=== PATIENT | male | born 1960 | race American Indian/Alaskan Native ===

== ENCOUNTER 2018-04-14 14:58 | Inpatient (IN) | payer BC ==
--- NOTE | 2018-04-14 15:16 | C.PDOC ---
Chief Complaint (Nursing): Abnormal Labs Past Medical History Vital Signs: Last Vital Signs Temp 97.6 F 04/14/18 15:03 Pulse 120 H 04/14/18 15:03 Resp 18 04/14/18 15:03 BP 173/137 H 04/14/18 15:03 Pulse Ox 98 04/14/18 15:03 - Social History Hx Alcohol Use: No Hx Substance Use: Yes ED Course And Treatment O2 Sat by Pulse Oximetry: 98 Disposition - Disposition
[2018-04-14] MEDS ORDERED: Sodium Chloride 0.9% 1,000 ML IV ONE ×2 (15:20→16:55)
[2018-04-14] MEDS ORDERED: Aluminum Hydroxide/Magnesium Hydroxide Susp (30 mL) PO STA (15:24)
--- NOTE | 2018-04-14 15:35 | C.PDOC ---
History Of Present Illness 58 y/o male with PMHx of diabetes and hypertension sent to the ED by Dr. Curry for abnormal labs. Patient has been vomiting for a few days and feeling dehydrated as per Dr. Curry. He then had blood work done, revealing elevated blood sugar and slightly elevated white count, with creatinine of [address] Curry also felt the patient may have gastritis. Otherwise denies any diarrhea, fever, chills, or other complaints. Time Seen by Provider: 04/14/18 15:14 Chief Complaint (Nursing): Abnormal Labs History Per: Patient History/Exam Limitations: no limitations Onset/Duration Of Symptoms: Days Current Symptoms Are (Timing): Still Present Past Medical History Reviewed: Historical Data, Nursing Documentation, Vital Signs Vital Signs: Last Vital Signs Temp 97.6 F 04/14/18 15:03 Pulse 89 04/14/18 17:40 Resp 18 04/14/18 17:40 BP 198/108 H 04/14/18 17:40 Pulse Ox 98 04/14/18 17:52 - Medical History PMH: Diabetes, HTN Family History: States: No Known Family Hx - Social History Hx Alcohol Use: No Hx Substance Use: Yes Review Of Systems Except As Marked, All Systems Reviewed And Found Negative. Constitutional: Positive for: Other (feeling dehydrated). Negative for: Fever, Chills Cardiovascular: Negative for: Chest Pain Respiratory: Negative for: Shortness of Breath Gastrointestinal: Positive for: Nausea, Vomiting. Negative for: Diarrhea Physical Exam - Physical Exam Appears: Non-toxic, No Acute Distress Skin: Normal Color, Warm, Dry Head: Atraumatic, Normacephalic Eye(s): bilateral: Normal Inspection, PERRL, EOMI Nose: Normal Oral Mucosa: Moist Neck: Normal ROM, Supple Cardiovascular: Rhythm Regular, No Murmur Respiratory: Normal Breath Sounds, No Rales, No Rhonchi, No Wheezing Gastrointestinal/Abdominal: Soft, Tenderness (epigastric), No Guarding, No Rebound Back: Normal Inspection, No CVA Tenderness, No Vertebral Tenderness Extremity: Bilateral: Atraumatic, Normal Color And Temperature, Normal ROM Pulses: Left Dorsalis Pedis: Normal, Right Dorsalis Pedis: Normal Neurological/Psych: Oriented x3, Normal Speech, Other (No focal deficits) Gait: Steady ED Course And Treatment - Laboratory Results Result Diagrams: 04/14/18 16:35 04/14/18 16:35 Lab Interpretation: Abnormal ECG: Interpreted By Me ECG Rhythm: Sinus Rhythm, Nonspecific Changes ECG Interpretation: No Acute Changes Rate From EC O2 Sat by Pulse Oximetry: 98 (RA) Pulse Ox Interpretation: Normal - Radiology CXR: Interpreted by Me CXR Interpretation: Yes: No Acute Disease Progress Note: Treated with NSS x 1 liters, protonix and maalox. Treated with clonidine 0.1 mg PO for elevated B/P Reassessment Condition: Improved - Physician Consult Information Time Consulting Physician Contacted: 17:07 Physician Contacted: Jerrod Curry Outcome Of Conversation: Discussed case with Dr. Curry, patient accepted to his service for admission Medical Decision Making Medical Decision Making: Initial Plan: --EKG --Lipase --CMP --CBC --Prothrombin time --Accucheck --Urinalysis --Pepcid 20 mg IVP --Zofran 4 mg IVP --Maalox 30 ml PO --IV fluids Labs reviewed, revealing elevated BUN and creatitine. Glucose 219. Lipase elevated, 560. Paged Dr. Curry. Patient will be admitted for dehydration and pancreatitis. Disposition Discussed With : Jerrod Curry Doctor Will See Patient In The: Hospital Counseled Patient/Family Regarding: Studies Performed, Diagnosis - Disposition Disposition: HOSPITALIZED Disposition Time: 17:09 Condition: STABLE - POA Present On Arrival: None - Clinical Impression Clinical Impression: Dehydration, Pancreatitis - PA / MANAGER ENVIRONMENTAL AFFAIRS / Resident Statement MD/DO has reviewed & agrees with the documentation as recorded. - Scribe Statement The provider has reviewed the documentation as recorded by the Scribe (Hermila Jones) All medical record entries made by the Scribe were at my direction and personally dictated by me. I have reviewed the chart and agree that the record accurately reflects my personal performance of the history, physical exam, medical decision making, and the department course for this patient. I have also personally directed, reviewed, and agree with the discharge instructions and disposition. Decision To Admit - Pt Status Changed To: Hospital Disposition Of: Inpatient - Admit Certification Admit to Inpatient:: After my assessment, the patient will require hospitalization for at least two midnights. This is because of the severity of symptoms shown, intensity of services needed, and/or the medical risk in this patient being treated as an outpatient. - InPatient: Physician Admission Certification: I certify that this patient requires 2 or more midnights of care for the following reason:: Dehydration. Pancreatitis - . Bed Request Type: Regular Admitting Physician: Jerrod Curry Patient Diagnosis: Dehydration, Pancreatitis
[2018-04-14] MEDS ORDERED: Aluminum Hydroxide/Magnesium Hydroxide Susp (30 mL) ONE (16:27)
[2018-04-14] MEDS ORDERED: Sodium Chloride 0.9% 1,000 ML ONE (16:27)
[2018-04-14 16:40] LABS: BASO % 0.3 % (0.0-2.0); EOS % 0.1 % (0.0-4.0); HEMOGLOBIN 17.8 g/dL (12.0-18.0); LYMPH # 2.8 K/uL (1.0-4.3); LYMPH % 21.9 % (20.0-40.0); MEAN CELL VOLUME 83.5 fL (80.0-94.0); MEAN CORPUSCULAR HEMOGLOBIN 27.6 pg (27.0-31.0); MEAN PLATELET VOLUME 9.7 fL (7.2-11.7); MONO % 7.4 % (0.0-10.0); NEUT # 9.1 K/uL (1.8-7.0); NEUT % 70.3 % (50.0-75.0); NRBC % 0.9 % (0.0-2.0); RBC 6.47 Mil/uL (4.40-5.90); RED CELL DISTRIBUTION WIDTH 13.3 % (11.5-14.5)
[2018-04-14 16:47] LABS: INR 1.2; PROTHROMBIN TIME 13.5 SECONDS (9.7-12.2)
[2018-04-14 17:02] LABS: ALBUMIN 4.1 g/dL (3.5-5.0); CALCIUM 9.4 mg/dl (8.6-10.4)
[2018-04-14 18:17] LABS: CK-MB 1.75 ng/mL (0.0-3.38); TROPONIN I 0.03 ng/mL (0.00-0.120)
[2018-04-14] MEDS: Sodium Chloride 0.45% 1,000 ML IV SCH (21:08)
[2018-04-14 21:37] LABS: URINE BACTERIA RARE (<OCC); URINE BILIRUBIN NEGATIVE (NEGATIVE); URINE BLOOD NEGATIVE (NEGATIVE); URINE CLARITY Clear (Clear); URINE COLOR Yellow (YELLOW); URINE GLUCOSE (UA) NORMAL (Normal); URINE LEUKOCYTE ESTERASE NEG Leu/uL (Negative); URINE PROTEIN 2+ mg/dL (NEGATIVE); URINE UROBILINOGEN NORMAL mg/dL (0.2-1.0)
[2018-04-14] MEDS: (Novolin R) Insulin Human Regular 100 units/ml vial SC SCH (22:24)
[2018-04-15 07:22] LABS: BASO % 0.1 % (0.0-2.0); HEMOGLOBIN 16.6 g/dL (12.0-18.0); LYMPH # 3.3 K/uL (1.0-4.3); LYMPH % 26.1 % (20.0-40.0); MEAN CELL VOLUME 83.7 fL (80.0-94.0); MEAN CORPUSCULAR HEMOGLOBIN 28.2 pg (27.0-31.0); MEAN CORPUSCULAR HGB CONC 33.7 g/dL (33.0-37.0); MEAN PLATELET VOLUME 9.7 fL (7.2-11.7); MONO # 0.9 K/uL (0.0-0.8); MONO % 6.8 % (0.0-10.0); NEUT # 8.6 K/uL (1.8-7.0); NRBC % 0.1 % (0.0-2.0); RBC 5.89 Mil/uL (4.40-5.90); RED CELL DISTRIBUTION WIDTH 13.2 % (11.5-14.5); WHITE BLOOD COUNT 12.8 K/uL (4.8-10.8)
[2018-04-15 07:50] LABS: ALB/GLOB RATIO 1.1 (1.0-2.1); ALBUMIN 3.7 g/dL (3.5-5.0); CALCIUM 8.9 mg/dl (8.6-10.4)
--- NOTE | 2018-04-15 07:54 | RAD ---
HISTORY: abdominal pain COMPARISON: No prior. TECHNIQUE: Chest PA and lateral FINDINGS: LUNGS: No active pulmonary disease. PLEURA: No significant pleural effusion identified. No pneumothorax apparent. CARDIOVASCULAR: Normal. OSSEOUS STRUCTURES: No significant abnormalities. VISUALIZED UPPER ABDOMEN: Normal. OTHER FINDINGS: None. IMPRESSION: No acute cardiopulmonary disease appreciated.
[2018-04-15] MEDS: (Novolin R) Insulin Human Regular 100 units/ml vial SC SCH ×4 (08:25→21:57)
[2018-04-15] MEDS: Sodium Chloride 0.45% 1,000 ML IV SCH (08:31)
[2018-04-15] MEDS ORDERED: Glucagon Recombinant 1 mg Inj IM PRN (09:32)
--- NOTE | 2018-04-15 09:53 | CP.PCM.PN ---
Subjective - Date & Time of Evaluation Date of Evaluation: 04/15/18 Time of Evaluation: 09:45 - Subjective Subjective: Progress note. Attending: Dr. Curry Pt seen and examined at bedside. No acute distress. No events overnight. Pt does admit to heroin abuse, psych consult placed. No fevers, chills, no more vomiting, no diarrhea. Pt is legally blind. PMH: Heroin abuse, DM, HTN, legally blind PSH: Allergies: NKDA FH: Denies Social hx: Denies smoking. Denies current drinking. Reports current heroin use. Intransal. 3-4 bags per day. Last use 2 days ago. Objective - Vital Signs/Intake and Output Vital Signs (last 24 hours): Temp Pulse Resp BP Pulse Ox 97.9 F 96 H 20 157/93 H 97 04/15/18 08:00 04/15/18 08:00 04/15/18 08:00 04/15/18 08:00 04/15/18 08:00 Intake and Output: 04/15/18 04/15/18 06:59 18:59 Intake Total 800 Output Total 500 Balance 300 - Medications Medications: Current Medications Amlodipine Besylate (Norvasc) 10 mg PO DAILY [facility] Dextrose (Dextrose 50% Inj) 0 ml IV STAT PRN; Protocol PRN Reason: Hypoglycemia Protocol Dextrose (Glutose 15) 0 gm PO ONCE PRN; Protocol PRN Reason: Hypoglycemia Protocol Enoxaparin Sodium (Lovenox) 40 mg SC DAILY [facility] Glucagon (Glucagen Diagnostic Kit) 0 mg IM STAT PRN; Protocol PRN Reason: Hypoglycemia Protocol Hydromorphone HCl (Dilaudid) 1 mg PO Q4H PRN PRN Reason: Pain, moderate (4-7) Sodium Chloride (Sodium Chloride 0.45%) 1,000 mls @ 100 mls/hr IV .Q10H [facility] Last Admin: 04/15/18 08:31 Dose: 100 mls/hr Dextrose (Dextrose 5% In Water 1000 Ml) 1,000 mls @ 0 mls/hr IV .Q0M PRN; Protocol; Per Protocol PRN Reason: Hypoglycemia Protocol Insulin Human Regular (Novolin R) 0 unit SC ACHS [facility] PRN Reason: Protocol Last Admin: 04/15/18 08:25 Dose: Not Given Ondansetron HCl (Zofran Inj) 4 mg IVP Q6 PRN PRN Reason: Nausea/Vomiting Pantoprazole Sodium (Protonix Inj) 40 mg IVP BID [facility] Pneumococcal Polyvalent Vaccine (Pneumovax 23 Vaccine) 0.5 ml IM .ONCE ONE Stop: 04/16/18 10:01 - Labs Labs: 04/15/18 07:13 04/15/18 07:23 PT 13.5 SECONDS (9.7-12.2) H 04/14/18 16:35 INR 1.2 04/14/18 16:35 - Constitutional Appears: Non-toxic, No Acute Distress, Unkempt - Head Exam Head Exam: ATRAUMATIC, NORMAL INSPECTION, NORMOCEPHALIC - Eye Exam Eye Exam: EOMI - ENT Exam ENT Exam: Mucous Membranes Moist - Neck Exam Neck Exam: Full ROM, Normal Inspection - Respiratory Exam Respiratory Exam: NORMAL BREATHING PATTERN. absent: Respiratory Distress - Cardiovascular Exam Cardiovascular Exam: REGULAR RHYTHM, +S1, +S2 - GI/Abdominal Exam GI & Abdominal Exam: Soft, Normal Bowel Sounds. absent: Tenderness - Extremities Exam Extremities Exam: Full ROM, Normal Inspection - Back Exam Back Exam: NORMAL INSPECTION - Neurological Exam Neurological Exam: Alert, Awake, Oriented x3 - Psychiatric Exam Psychiatric exam: Flat Affect - Skin Skin Exam: Dry, Intact, Normal Color, Warm Assessment and Plan - Assessment and Plan (Free Text) Assessment: This is a 58 yo male with 1. Pancreatitis -NPO -GI consult. Dr. Real. recs appreciated. -dilaudid 1 mg po q 4 hrs prn -zofran prn -1/2 NS 100 cc/hr -lipase 560 -abdominal ultrasound pending 2. Vomiting -zofran prn nausea -r/o coffee ground emesis? -protonix IV bid -GI consult. recs appreciated. Dr. Real 3. Increased BUN/CR -nephrology consult. Dr. Gamino. recs appreciated. -unclear etiology at this time 4. Hx of HTN -continue norvasc 10 mg po daily 5. hx of DM -ISS -hypoglycemia protocol -check HGB a 1C -check lipid panel 6. GI/DVT ppx -protonix iv bid -scds discussed with Dr. Curry
[2018-04-15] MEDS ORDERED: Dextrose 50% SYRINGE Inj (50 ml) IV PRN (10:00)
--- NOTE | 2018-04-15 10:22 | US ---
Abdominal ultrasound History: Abdominal pain. Pancreatitis. Comparison: None available. Technique: Real-time sonography was performed through the abdomen. Findings: Limited study secondary to gas distention of bowel. Liver: 11.9 centimeters in length. Normal echogenicity. Gallbladder: No calculi or sludge. Normal wall thickening of 2.5 millimeters. Negative sonographic Garcia's sign. Common bile duct measures 1.1 centimeter, dilated. Pancreas not well visualized. Spleen measures 7.3 centimeters in length, within normal limits. Bold Visualized aorta and IVC are preserved. Right kidney: 8.5 x 5.4 x 5.2 centimeters. Increased echogenicity of the renal parenchymal cortex suggestive for medical renal disease. No calculi or hydronephrosis. Left kidney: 8.8 x 5.2 x 5.5 centimeters. Increased echogenicity of the renal parenchymal cortex suggestive for medical renal disease. No calculi or hydronephrosis. Impression: Technically limited study. Pancreas not well visualized. Correlation with CT scan would be helpful to exclude pancreatitis. Dilated common bile duct measuring up to 1.1 centimeters. Correlation with MRCP may be helpful for further evaluation if clinically indicated. Increased echogenicity of the bilateral renal parenchymal cortices suggestive for medical renal disease. Clinical correlation.
[2018-04-15] MEDS: Dextrose 5%/0.45% NS 1,000 ML IV SCH ×2 (10:50→21:10)
[2018-04-15] MEDS: Enoxaparin 40 mg Syringe SC SCH (11:01)
[2018-04-15] MEDS ORDERED: Lactated Ringer's 1,000 ML IV ONE ×2 (11:16)
[2018-04-15] MEDS ORDERED: Propofol 10 mg/ml Inj (20 ML) ONE (11:20)
[2018-04-15] MEDS ORDERED: Succinylcholine Chloride 20 mg/ml Syr (5 ml) IV ONE (11:20)
[2018-04-15] MEDS: metroNIDAZOLE IV 500 mg/100 ml 500 MG/100 ML BAG IVPB SCH ×2 (12:08→20:50)
[2018-04-15 12:44] LABS: BARBITURATES, UR NEGATIVE (NEGATIVE); BENZODIAZEPINES, UR NEGATIVE (NEGATIVE); PHENCYCLIDINE, UR NEGATIVE (NEGATIVE)
[2018-04-15 12:53] LABS: OPIATES, UR POSITIVE (NEGATIVE)
--- NOTE | 2018-04-15 14:33 | CP.PCM.CON ---
History of Present Illness - History of Present Illness History of Present Illness: Initial Nephrology Consultation: Assessment: Stable recurrent nausea/vomitting with gastritis duodenitis and candidiasis Acute Kidney Injury (N17.9) likely due to pre-renal state Diabetic chronic Kidney Disease (E11.22) Hypertensive Chronic Kidney Disease (I12.9) Chronic Kidney Disease (N18.9) Stage ? with ? mg proteinuria (R80.9) likely due to HTN (CKD evident by proteinuria and echogenic kidneys) b/l vision loss due to glaucoma, active smoker, ex heroin in past, takes methadone now active smoker Plan No acute need for renal replacement therapy at this time. Hypertension control with meds as ordered. Patient not on ACEI/ARB due to BUTCH. added lopressor, continue with norvasc Monitor Input/Output, daily weights and renal function with basic metabolic panel agree with IVF Check urine analysis, spot protein/creatinine and albumin/creatinine ratio Check for 25-OH vitamin D, iPTH, phosphorus level HIV/Hep B and Hep C serology Dose meds/antibiotics for reduced GFR. Avoid fleets enema/magnesium based laxatives. Avoid nephrotoxins/NSAIDs/ iodinated contrast (unless needed emergently) Glycemic control, smoking cessation Further work up/management as per primary team Thanks for allowing me to participate in care of your patient. Will follow patient with you. Please call if any Qs. d/w and team Dr Placido Roe Office: [phone] Chief Complaint; nausea/vomitting reason for consult: BUTCH HPI: Pt is a 58 M with hx of diabetes Mellitus (5-6 years), hypertension (5-6 years), b/l vision loss due to glaucoma, active smoker, ex heroin in past, takes methadone now presented with complaints of persistent nausea/vomitting for last few days with upper abdomen pain. renal consult for BUTCH. pt or not aware about kidney disease in past Denies OTC/herbal meds has taken NSAIDs as alleve for few doses only. 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 No obvious episodes of low BP. feels better now. had egd done 04/15/18 ROS: Cardiovascular: No chest pain. Pulmonary: No shortness of breath Gastrointestinal: improved abdominal pain better nausea. better vomiting. Genitourinary: No pain while urinating. Denies blood in urine. reported decreased urine output All other negative Physical Examination: General Appearance: Comfortable, in no acute respiratory distress, co-operative . Vitals reviewed and noted as below Head; Atraumatic, normocephalic ENT: no ulcers no thrush. Tongue is midline. Oropharynx: no rash or ulcers. EYES: Pupils are equal, round and reactive to light accommodation. Eye muscles and extraocular movement intact. Sclera is anicteric. he is legally blind Neck; supple no lymphadenopathy, no thyromegaly or bruit Lungs: Normal respiratory rate/effort. Breath sounds bilateral equal and clear Heart: Normal rate. s1s2 normal. No rub or gallop. Extremities: no edema. No varicose veins Neurological: Patient is alert, awake and oriented to person, place and time. No focal deficit. Strength bilateral appropriate and equal Skin: Warm and dry. Normal turgor. No rash. Palpitation: Normal elasticity for age Abdomen: Abdomen is soft. Bowel sounds +. There is no abdominal tenderness, no guarding/rigidity no organomegaly Psych: limited insight and normal affect/mood MSK: no joint tenderness or swelling. Digits and nails normal, no deformity : kidney or bladder not palpable Labs/imaging reviewed. Past medical history, past surgical history, family history, social history, allergy reviewed and noted as below Family hx: no hx of CKD. Rest non-contributory renal imaging: b/l echogenic kidneys UA: 2+ protein Past Patient History - Past Medical History & Family History Past Medical History?: Yes - Past Social History Smoking Status: Light Smoker < 10 Cigarettes Daily - CARDIAC Hx Hypertension: Yes - HEENT Hx HEENT Problems: Yes Hx Blind: Yes (LEGALLY) - ENDOCRINE/METABOLIC Hx Endocrine Disorders: Yes Hx Diabetes Mellitus Type 2: Yes - MUSCULOSKELETAL/RHEUMATOLOGICAL Hx Falls: No - PSYCHIATRIC Hx Substance Use: Yes - ANESTHESIA Hx Anesthesia: Yes Hx Anesthesia Reactions: No Meds Allergies/Adverse Reactions: Allergies Allergy/AdvReac Type Severity Reaction Status Date / Time No Known Allergies Allergy Verified 04/14/18 15:06 - Medications Medications: Current Medications Amlodipine Besylate (Norvasc) 10 mg PO DAILY KELY Dextrose (Dextrose 50% Inj) 0 ml IV STAT PRN; Protocol PRN Reason: Hypoglycemia Protocol Dextrose (Glutose 15) 0 gm PO ONCE PRN; Protocol PRN Reason: Hypoglycemia Protocol Enoxaparin Sodium (Lovenox) 40 mg SC DAILY [facility] Last Admin: 04/15/18 11:01 Dose: Not Given Fluconazole (Diflucan) 200 mg PO DAILY [facility] PRN Reason: Protocol Stop: 04/29/18 23:59 Last Admin: 04/15/18 13:14 Dose: 200 mg Glucagon (Glucagen Diagnostic Kit) 0 mg IM STAT PRN; Protocol PRN Reason: Hypoglycemia Protocol Hydromorphone HCl (Dilaudid) 1 mg PO Q4H PRN PRN Reason: Pain, moderate (4-7) Dextrose (Dextrose 5% In Water 1000 Ml) 1,000 mls @ 0 mls/hr IV .Q0M PRN; Protocol; Per Protocol PRN Reason: Hypoglycemia Protocol Dextrose/Sodium Chloride (Dextrose 5%/0.45% Ns 1000 Ml) 1,000 mls @ 100 mls/hr IV .Q10H [facility] Last Admin: 04/15/18 10:50 Dose: 100 mls/hr Metronidazole (Flagyl) 500 mg in 100 mls @ 100 mls/hr IVPB Q8H [facility] PRN Reason: Protocol Last Admin: 04/15/18 12:08 Dose: 100 mls Insulin Human Regular (Novolin R) 0 unit SC ACHS KELY PRN Reason: Protocol Last Admin: 04/15/18 12:55 Dose: Not Given Metoprolol Tartrate (Lopressor) 25 mg PO BID [facility] Last Admin: 04/15/18 13:13 Dose: 25 mg Ondansetron HCl (Zofran Inj) 4 mg IVP Q6 PRN PRN Reason: Nausea/Vomiting Pantoprazole Sodium (Protonix Inj) 40 mg IVP BID [facility] Last Admin: 04/15/18 10:54 Dose: 40 mg Pneumococcal Polyvalent Vaccine (Pneumovax 23 Vaccine) 0.5 ml IM .ONCE ONE Stop: 04/17/18 10:01 Sucralfate (Carafate Tab) 1 gm PO TID [facility] Last Admin: 04/15/18 13:14 Dose: 1 gm Results - Vital Signs Recent Vital Signs: Last Vital Signs Temp 97.6 F 04/15/18 12:56 Pulse 108 H 04/15/18 12:56 Resp 18 04/15/18 12:56 BP 163/106 H 04/15/18 13:13 Pulse Ox 98 04/15/18 12:56 - Labs Result Diagrams: 04/15/18 07:13 04/15/18 07:23 Labs: Laboratory Results - last 24 hr 04/14/18 04/14/18 04/14/18 15:15 16:35 16:35 WBC 13.0 H RBC 6.47 H Hgb 17.8 Hct 54.0 H MCV 83.5 MCH 27.6 MCHC 33.0 RDW 13.3 Plt Count 286 MPV 9.7 Neut % (Auto) 70.3 Lymph % (Auto) 21.9 [place] % (Auto) 7.4 Eos % (Auto) 0.1 Baso % (Auto) 0.3 Neut # (Auto) 9.1 H Lymph # (Auto) 2.8 [place] # (Auto) 1.0 H Eos # (Auto) 0.0 Baso # (Auto) 0.0 Differential Comment PT 13.5 H INR 1.2 Sodium Potassium Chloride Carbon Dioxide Anion Gap BUN Creatinine Est GFR ( Amer) Est GFR (Non-Af Amer) POC Glucose (mg/dL) 219 H Random Glucose Hemoglobin A1c Calcium Total Bilirubin AST ALT Alkaline Phosphatase CK-MB (Mass) Troponin I Total Protein Albumin Globulin Albumin/Globulin Ratio Triglycerides Cholesterol LDL Cholesterol Direct HDL Cholesterol Lipase Urine Color Urine Clarity Urine pH Ur Specific [place] Urine Protein Urine Glucose (UA) Urine Ketones Urine Blood Urine Nitrate Urine Bilirubin Urine Urobilinogen Ur Leukocyte Esterase Urine WBC (Auto) Urine RBC (Auto) Urine Bacteria Urine Opiates Screen Urine Methadone Screen Ur Barbiturates Screen Ur Phencyclidine Scrn Ur Amphetamines Screen U Benzodiazepines Scrn U Oth Cocaine Metabols U Cannabinoids Screen 04/14/18 04/14/18 04/14/18 16:35 16:35 21:30 WBC RBC Hgb Hct MCV MCH MCHC RDW Plt Count MPV Neut % (Auto) Lymph % (Auto) [place] % (Auto) Eos % (Auto) Baso % (Auto) Neut # (Auto) Lymph # (Auto) [place] # (Auto) Eos # (Auto) Baso # (Auto) Differential Comment PT INR Sodium 137 Potassium 3.9 Chloride 94 L Carbon Dioxide 25 Anion Gap 22 H BUN 75 H Creatinine 2.8 H Est GFR ( Amer) 28 Est GFR (Non-Af Amer) 23 POC Glucose (mg/dL) Random Glucose 195 H Hemoglobin A1c Calcium 9.4 Total Bilirubin 1.5 H AST 54 ALT 17 L Alkaline Phosphatase 121 CK-MB (Mass) 1.75 Troponin I 0.0300 Total Protein 8.1 Albumin 4.1 Globulin 4.1 H Albumin/Globulin Ratio 1.0 Triglycerides Cholesterol LDL Cholesterol Direct HDL Cholesterol Lipase 560 H Urine Color Yellow Urine Clarity Clear Urine pH 5.0 Ur Specific [place] 1.017 Urine Protein 2+ H Urine Glucose (UA) Normal Urine Ketones Negative Urine Blood Negative Urine Nitrate Negative Urine Bilirubin Negative Urine Urobilinogen Normal Ur Leukocyte Esterase Neg Urine WBC (Auto) 1 Urine RBC (Auto) 3 Urine Bacteria Rare Urine Opiates Screen Urine Methadone Screen Ur Barbiturates Screen Ur Phencyclidine Scrn Ur Amphetamines Screen U Benzodiazepines Scrn U Oth Cocaine Metabols U Cannabinoids Screen 04/14/18 04/15/18 04/15/18 22:04 07:13 07:23 WBC 12.8 H RBC 5.89 Hgb 16.6 Hct 49.3 MCV 83.7 MCH 28.2 MCHC 33.7 RDW 13.2 Plt Count 255 MPV 9.7 Neut % (Auto) 67.0 Lymph % (Auto) 26.1 [place] % (Auto) 6.8 Eos % (Auto) 0.0 Baso % (Auto) 0.1 Neut # (Auto) 8.6 H Lymph # (Auto) 3.3 [place] # (Auto) 0.9 H Eos # (Auto) 0.0 Baso # (Auto) 0.0 Differential Comment PT INR Sodium 140 Potassium 3.6 Chloride 100 Carbon Dioxide 27 Anion Gap 17 BUN 60 H Creatinine 2.5 H Est GFR ( Amer) 32 Est GFR (Non-Af Amer) 27 POC Glucose (mg/dL) 88 Random Glucose 61 L Hemoglobin A1c Calcium 8.9 Total Bilirubin 1.1 AST 32 ALT 21 D Alkaline Phosphatase 103 CK-MB (Mass) Troponin I Total Protein 7.2 Albumin 3.7 Globulin 3.4 Albumin/Globulin Ratio 1.1 Triglycerides 78 Cholesterol 159 LDL Cholesterol Direct 78 HDL Cholesterol 59 Lipase 291 Urine Color Urine Clarity Urine pH Ur Specific [place] Urine Protein Urine Glucose (UA) Urine Ketones Urine Blood Urine Nitrate Urine Bilirubin Urine Urobilinogen Ur Leukocyte Esterase Urine WBC (Auto) Urine RBC (Auto) Urine Bacteria Urine Opiates Screen Urine Methadone Screen Ur Barbiturates Screen Ur Phencyclidine Scrn Ur Amphetamines Screen U Benzodiazepines Scrn U Oth Cocaine Metabols U Cannabinoids Screen 04/15/18 04/15/18 04/15/18 07:26 07:28 09:52 WBC RBC Hgb Hct MCV MCH MCHC RDW Plt Count MPV Neut % (Auto) Lymph % (Auto) [place] % (Auto) Eos % (Auto) Baso % (Auto) Neut # (Auto) Lymph # (Auto) [place] # (Auto) Eos # (Auto) Baso # (Auto) Differential Comment PT INR Sodium Potassium Chloride Carbon Dioxide Anion Gap BUN Creatinine Est GFR ( Amer) Est GFR (Non-Af Amer) POC Glucose (mg/dL) 69 74 80 Random Glucose Hemoglobin A1c Calcium Total Bilirubin AST ALT Alkaline Phosphatase CK-MB (Mass) Troponin I Total Protein Albumin Globulin Albumin/Globulin Ratio Triglycerides Cholesterol LDL Cholesterol Direct HDL Cholesterol Lipase Urine Color Urine Clarity Urine pH Ur Specific [place] Urine Protein Urine Glucose (UA) Urine Ketones Urine Blood Urine Nitrate Urine Bilirubin Urine Urobilinogen Ur Leukocyte Esterase Urine WBC (Auto) Urine RBC (Auto) Urine Bacteria Urine Opiates Screen Urine Methadone Screen Ur Barbiturates Screen Ur Phencyclidine Scrn Ur Amphetamines Screen U Benzodiazepines Scrn U Oth Cocaine Metabols U Cannabinoids Screen 04/15/18 04/15/18 04/15/18 09:58 11:54 12:48 WBC RBC Hgb Hct MCV MCH MCHC RDW Plt Count MPV Neut % (Auto) Lymph % (Auto) [place] % (Auto) Eos % (Auto) Baso % (Auto) Neut # (Auto) Lymph # (Auto) [place] # (Auto) Eos # (Auto) Baso # (Auto) Differential Comment PT INR Sodium Potassium Chloride Carbon Dioxide Anion Gap BUN Creatinine Est GFR ( Amer) Est GFR (Non-Af Amer) POC Glucose (mg/dL) 96 Random Glucose Hemoglobin A1c 7.2 H Calcium Total Bilirubin AST ALT Alkaline Phosphatase CK-MB (Mass) Troponin I Total Protein Albumin Globulin Albumin/Globulin Ratio Triglycerides Cholesterol LDL Cholesterol Direct HDL Cholesterol Lipase Urine Color Urine Clarity Urine pH Ur Specific [place] Urine Protein Urine Glucose (UA) Urine Ketones Urine Blood Urine Nitrate Urine Bilirubin Urine Urobilinogen Ur Leukocyte Esterase Urine WBC (Auto) Urine RBC (Auto) Urine Bacteria Urine Opiates Screen Positive H Urine Methadone Screen Negative Ur Barbiturates Screen Negative Ur Phencyclidine Scrn Negative Ur Amphetamines Screen Negative U Benzodiazepines Scrn Negative U Oth Cocaine Metabols Negative U Cannabinoids Screen Negative
[2018-04-15 16:01] VITALS: RESP 20
--- NOTE | 2018-04-15 19:46 | CARD ---
APPROVED REPORT EKG Measurement Heart [id number] <Conclusion> Normal sinus rhythm T wave abnormality: NONSPECIFIC Abnormal ECG
[2018-04-16] MEDS: metroNIDAZOLE IV 500 mg/100 ml 500 MG/100 ML BAG IVPB SCH ×3 (03:47→20:27)
[2018-04-16 07:21] LABS: BASO % 0.2 % (0.0-2.0); EOS % 0.1 % (0.0-4.0); HEMOGLOBIN 14.5 g/dL (12.0-18.0); LYMPH # 4.2 K/uL (1.0-4.3); LYMPH % 35.6 % (20.0-40.0); MEAN CELL VOLUME 83.3 fL (80.0-94.0); MEAN CORPUSCULAR HEMOGLOBIN 27.8 pg (27.0-31.0); MEAN CORPUSCULAR HGB CONC 33.4 g/dL (33.0-37.0); MEAN PLATELET VOLUME 10.3 fL (7.2-11.7); MONO # 0.9 K/uL (0.0-0.8); MONO % 7.6 % (0.0-10.0); NEUT # 6.6 K/uL (1.8-7.0); NEUT % 56.5 % (50.0-75.0); NRBC % 0.1 % (0.0-2.0); RBC 5.21 Mil/uL (4.40-5.90); RED CELL DISTRIBUTION WIDTH 12.9 % (11.5-14.5); WHITE BLOOD COUNT 11.7 K/uL (4.8-10.8)
--- NOTE | 2018-04-16 07:44 | HP ---
HISTORY OF PRESENT ILLNESS: The patient is a 58-year-old male with chief complaint abdominal pain, weakness, renal failure and pancreatitis . PHYSICAL EXAMINATION: GENERAL: The patient is alert, awake, and oriented. VITAL SIGNS: Temperature 98, pulse 90. HEENT: Within normal limits. NECK: Supple. CHEST: Symmetrical. HEART: Regular. ABDOMEN: Soft. EXTREMITIES: No edema. The patient suffers from renal failure The patient to get bedrest. Supportive care. Jerrod Curry MD
[2018-04-16 07:51] LABS: ALBUMIN 3.1 g/dL (3.5-5.0); CALCIUM 8.1 mg/dl (8.6-10.4)
[2018-04-16 08:08] LABS: HEPATITIS B SURFACE AG Negative (NEGATIVE)
[2018-04-16 08:12] LABS: HEPATITIS B CORE AB NEGATIVE (NEGATIVE)
[2018-04-16] MEDS: (Novolin R) Insulin Human Regular 100 units/ml vial SC SCH ×4 (08:25→21:53)
[2018-04-16 09:36] LABS: HEPATITIS C ANTIBODY REACTIVE (NEGATIVE)
[2018-04-16] MEDS ORDERED: Pneumococcal 23-Valent Vaccine IM ONE (10:00)
--- NOTE | 2018-04-16 10:04 | CP.PCM.PN ---
Subjective - Date & Time of Evaluation Date of Evaluation: 04/16/18 Time of Evaluation: 10:00 - Subjective Subjective: Progress note. Attending: Dr. Curry Pt seen and examined at bedside. No acute distress. No events overnight. No fevers, chills, vomiting, diarrhea. No complaints at this time. Objective - Vital Signs/Intake and Output Vital Signs (last 24 hours): Temp Pulse Resp BP Pulse Ox 98.4 F 80 20 149/76 95 04/16/18 00:00 04/16/18 00:00 04/16/18 00:00 04/16/18 00:00 04/16/18 00:00 Intake and Output: 04/16/18 04/16/18 06:59 18:59 Intake Total 1690 Output Total 700 Balance 990 - Medications Medications: Current Medications Amlodipine Besylate (Norvasc) 10 mg PO DAILY [facility] Last Admin: 04/15/18 15:25 Dose: 10 mg Dextrose (Dextrose 50% Inj) 0 ml IV STAT PRN; Protocol PRN Reason: Hypoglycemia Protocol Dextrose (Glutose 15) 0 gm PO ONCE PRN; Protocol PRN Reason: Hypoglycemia Protocol Enoxaparin Sodium (Lovenox) 40 mg SC DAILY [facility] Last Admin: 04/15/18 11:01 Dose: Not Given Fluconazole (Diflucan) 200 mg PO DAILY [facility] PRN Reason: Protocol Stop: 04/29/18 23:59 Last Admin: 04/15/18 13:14 Dose: 200 mg Glucagon (Glucagen Diagnostic Kit) 0 mg IM STAT PRN; Protocol PRN Reason: Hypoglycemia Protocol Hydromorphone HCl (Dilaudid) 1 mg PO Q4H PRN PRN Reason: Pain, moderate (4-7) Last Admin: 04/15/18 17:47 Dose: 1 mg Dextrose (Dextrose 5% In Water 1000 Ml) 1,000 mls @ 0 mls/hr IV .Q0M PRN; Protocol; Per Protocol PRN Reason: Hypoglycemia Protocol Dextrose/Sodium Chloride (Dextrose 5%/0.45% Ns 1000 Ml) 1,000 mls @ 100 mls/hr IV .Q10H [facility] Last Admin: 04/15/18 21:10 Dose: 100 mls/hr Metronidazole (Flagyl) 500 mg in 100 mls @ 100 mls/hr IVPB Q8H [facility] PRN Reason: Protocol Last Admin: 04/16/18 03:47 Dose: 100 mls/hr Insulin Human Regular (Novolin R) 0 unit SC ACHS [facility] PRN Reason: Protocol Last Admin: 04/16/18 08:25 Dose: 2 unit Metoprolol Tartrate (Lopressor) 25 mg PO BID [facility] Last Admin: 04/15/18 17:41 Dose: 25 mg Ondansetron HCl (Zofran Inj) 4 mg IVP Q6 PRN PRN Reason: Nausea/Vomiting Pantoprazole Sodium (Protonix Inj) 40 mg IVP BID [facility] Last Admin: 04/15/18 17:40 Dose: 40 mg Pneumococcal Polyvalent Vaccine (Pneumovax 23 Vaccine) 0.5 ml IM .ONCE ONE Stop: 04/17/18 10:01 Sucralfate (Carafate Tab) 1 gm PO TID [facility] Last Admin: 04/15/18 17:42 Dose: 1 gm - Labs Labs: 04/16/18 07:11 04/16/18 07:11 PT 13.5 SECONDS (9.7-12.2) H 04/14/18 16:35 INR 1.2 04/14/18 16:35 - Constitutional Appears: Non-toxic, No Acute Distress, Unkempt, Chronically Ill - Head Exam Head Exam: ATRAUMATIC, NORMAL INSPECTION, NORMOCEPHALIC - ENT Exam ENT Exam: Mucous Membranes Moist - Neck Exam Neck Exam: Full ROM, Normal Inspection - Respiratory Exam Respiratory Exam: NORMAL BREATHING PATTERN. absent: Respiratory Distress - Cardiovascular Exam Cardiovascular Exam: +S1, +S2 - GI/Abdominal Exam GI & Abdominal Exam: Soft, Normal Bowel Sounds. absent: Tenderness - Extremities Exam Extremities Exam: Full ROM, Normal Inspection - Neurological Exam Neurological Exam: Alert, Awake, Oriented x3 - Psychiatric Exam Psychiatric exam: Flat Affect - Skin Skin Exam: Dry, Intact, Normal Color, Warm Assessment and Plan - Assessment and Plan (Free Text) Assessment: This is a 58 yo male with 1. Antonia esophagitis -NPO -GI consult. Dr. Real. recs appreciated. -dilaudid 1 mg po q 4 hrs prn -zofran prn - D5 1/2 NS 100 cc/hr -lipase 560 -abdominal ultrasound shows pancreas not well visualized -HIV pending -diflucan 200 -flagyl q 8 hrs -full liquid diet 2. Vomiting -zofran prn nausea -r/o coffee ground emesis? -protonix IV bid -GI consult. recs appreciated. Dr. Real -add sucralfate 1 g po tid -endoscopy performed -biopsy pending -erythematous mucosa in antrum -duodenopathy 3. Increased BUN/CR -nephrology consult. Dr. Gamino. recs appreciated. Dr. Roe covering. -pt has ckd. 4. Hx of HTN -continue norvasc 10 mg po daily -add lopressor 5. hx of DM -ISS -hypoglycemia protocol -check HGB a 1C -check lipid panel 6. GI/DVT ppx -protonix iv bid -scds discussed with Dr. Curry
[2018-04-16] MEDS ORDERED: Potassium Chloride 20 mEq ER Tab PO SCH (10:15)
[2018-04-16] MEDS ORDERED: Ergocalciferol 50,000 Intl Units Cap PO SCH (10:15)
[2018-04-16] MEDS: Enoxaparin 40 mg Syringe SC SCH (11:00)
--- NOTE | 2018-04-16 12:14 | PCM.PSYCH ---
Initial Psychiatric Evaluation - Initial Psychiatric Evaluation Type of Admission: Voluntary Legal Status: Capacity Chief Complaint (in patient's own words): "I feel sick" History of Present Illness and Precipitating Events: The patient is seen, chart reviewed and case discussed. Consultation was requested for his opioid withdrawal. This is a 58-year-old male, with 5 children, unemployed and lives with his . The patient is here for GI problems and he admits to using 5 bags of heroin intranasally for the past 4 years. He denies alcohol, cocaine and all other drugs and he quit smoking last week. He reports opioid withdrawal and his cows score is around 8. No previous history of treatment. Past psych history: Denies Family psych history: Denies Medical history: Legally blind, hypertension and diabetes Current Medications: Active Medications Generic Name Dose Route Start Last Admin Trade Name Freq PRN Reason Stop Dose Admin Amlodipine Besylate 10 mg 04/15/18 15:00 04/16/18 11:00 Norvasc PO 10 mg DAILY [facility] Administration Dextrose 0 ml 04/15/18 10:00 Dextrose 50% Inj IV STAT PRN Hypoglycemia Protocol Protocol Dextrose 0 gm 04/15/18 10:00 Glutose 15 PO ONCE PRN Hypoglycemia Protocol Protocol Enoxaparin Sodium 40 mg 04/15/18 10:00 04/16/18 11:00 Lovenox SC 40 mg DAILY [facility] Administration Ergocalciferol 1 cap 04/16/18 10:15 04/16/18 11:00 Drisdol 50,000 Intl Units Cap PO 1 cap Q7D [facility] Administration Fluconazole 200 mg 04/15/18 11:30 04/16/18 11:00 Diflucan PO 04/29/18 23:59 200 mg DAILY [facility] Administration Protocol Glucagon 0 mg 04/15/18 09:32 Glucagen Diagnostic Kit IM STAT PRN Hypoglycemia Protocol Protocol Hydromorphone HCl 1 mg 04/14/18 20:46 04/15/18 17:47 Dilaudid PO 1 mg Q4H PRN Administration Pain, moderate (4-7) Dextrose 1,000 mls @ 0 mls/hr 04/15/18 09:32 Dextrose 5% In Water 1000 Ml IV .Q0M PRN Hypoglycemia Protocol Protocol Per Protocol Metronidazole 500 mg in 100 mls @ 100 mls/hr 04/15/18 12:00 04/16/18 03:47 Flagyl IVPB 100 mls/hr Q8H [facility] Administration Protocol Dextrose/Sodium Chloride 1,000 mls @ 100 mls/hr 04/16/18 12:15 Dextrose 5%/0.9% Ns 1000 Ml IV .Q10H [facility] Insulin Human Regular 0 unit 04/14/18 22:00 04/16/18 08:25 Novolin R SC 2 unit ACHS [facility] Administration Protocol Methadone HCl 15 mg 04/16/18 12:45 Methadone PO 04/16/18 12:46 ONCE ONE Metoprolol Tartrate 25 mg 04/15/18 10:45 04/16/18 11:00 Lopressor PO 25 mg BID [facility] Administration Ondansetron HCl 4 mg 04/14/18 20:46 Zofran Inj IVP Q6 PRN Nausea/Vomiting Pantoprazole Sodium 40 mg 04/15/18 10:00 04/16/18 11:00 Protonix Inj IVP 40 mg BID [facility] Administration Pneumococcal Polyvalent Vaccine 0.5 ml 04/17/18 10:00 Pneumovax 23 Vaccine IM 04/17/18 10:01 .ONCE ONE Sucralfate 1 gm 04/15/18 14:00 04/16/18 11:00 Carafate Tab PO 1 gm TID [facility] Administration Past Psychiatric History - Past Psychiatric History Previous Treatment History: None Pertinent Medical Hx (Current Medical&Sleep Prob, Allergies): Allergies Allergy/AdvReac Type Severity Reaction Status Date / Time No Known Allergies Allergy Verified 04/14/18 15:06 Unobtainable 04/14/18 Review of Systems - Neurological Neurological: Tremor - Psychiatric Psychiatric: Abnormal Sleep Pattern, Anxiety, Difficulty Concentrating, Irritability. absent: Hallucinations, Homicidal Ideation, Paranoia, Suicidal Ideation Mental Status Examination - Personal Presentation Personal Presentation: Looks stated age - Affect Affect: Constricted - Motor Activity Motor Activity: Calm - Reliability in Providing Information Reliability in Providing Information: Fair - Speech Speech: Organized - Mood Mood: Anxious - Formal Thought Process Formal Thought Process: No Impairment - Cognitive Functions Orientation: Person, Place, Situation, Time Sensorium: Alert Attention/Concentration: Easily distracted Abstract Thinking: [place] Estimate of Intelligence: Average Judgement: Intact, as evidence by: Insight regarding need for hospitalization Memory: Recent intact, as evidence by: Ability to recall events of the day, Remote intact, as evidenced by: Abilit to recall sig. life events - Risk Risk: Withdrawal - Strength & Assets Inventory Strength & Assets Inventory: Cooperative - Limitations Limitations: Other DSM 5 DX - DSM 5 DSM 5 Diagnosis: Opioid withdrawal Opioid use disorder, severe - Recommended/Plan of Treatment Treatment Recommendations and Plan of Treatment: Taper with methadone, start with 15 mg Trazodone for insomnia As needed medications All risks, benefits and alternatives of the meds discussed, and the pt agreed and understood. Supportive therapy and psychoeducation SC for abstinence Encourage MAT Refer to rehab or IOP, and self-help groups 32 min
[2018-04-16] MEDS: Dextrose 5%/0.9% NS 1,000 ML IV SCH ×2 (12:15→22:34)
[2018-04-16] MEDS: Dextrose 5%/0.45% NS 1,000 ML IV SCH (13:14)
--- NOTE | 2018-04-16 13:20 | PN ---
DATE: 04/16/2018 LOCATION: 369, bed B. SUBJECTIVE: This is a 58-year-old male seen and examined in round post-upper endoscopy and biopsy yesterday. Pathology report is still pending with hepatitis C viral antibodies positive. The patient still has intermittent period of mild abdominal pain with postprandial abdominal distention, but no reported active bleeding. Ultrasound of abdomen showed evidence of dilated common bile duct and MRCP was suggested. Today's lab showed leukocytosis of 11.7, potassium 3.4, BUN of 40, creatinine 2.1, blood glucose level 216, calcium 8.1, total bilirubin 1.4, albumin 3.1, and total protein 6. The entire chart is reviewed, including but not limited to most recent lab and radiology study results, current and previous medication list, current and previous medical events is discussed with the staff as well as the patient and at length yesterday and this morning. PHYSICAL EXAMINATION: GENERAL: A 58-year-old male appeared to be awake and alert, slightly cachectic. VITAL SIGNS: Afebrile with pulse of 82, respiratory rate 20 to 22, blood pressure 144/70. HEENT: Showed pale and dry oral mucous membrane with bilateral icteric sclerae. LUNGS: Few scattered crepitation. Decreased air entry at bases. HEART: Positive S1 and S2. ABDOMEN: Soft with slight generalized tenderness. No mass or organomegaly. No rebound tenderness or guarding. EXTREMITIES: With evidence of muscle wasting syndrome in the lower extremities with mild edematous changes. No clubbing or cyanosis. NEUROLOGIC: No new reported neurological deficits, sensory or motor. The patient denied any actual chest pain, chills or fever or significant shortness of breath. No nausea or vomiting this morning. IMPRESSION: 1. Poorly-controlled diabetes mellitus with recurrent episodes of diabetic gastroparesis. 2. Poorly-controlled hypertension. 3. Esophageal candidiasis with gastritis and episode of hematemesis recently. 4. Renal insufficiency. 5. Electrolyte imbalance with hypocalcemia and hypokalemia with increased BUN and creatinine. SUGGESTION: 1. Agree with your plan. 2. Reglan IV. 3. Rehydration. 4. Further recommendation to follow and renal reevaluation to be considered. Tae Garcia MD
--- NOTE | 2018-04-16 14:49 | CP.PCM.PN ---
Subjective - Date & Time of Evaluation Date of Evaluation: 04/16/18 Time of Evaluation: 14:46 - Subjective Subjective: Nephrology Consultation Note: Assessment: Stable recurrent nausea/vomitting with gastritis duodenitis and candidiasis Acute Kidney Injury (N17.9) likely due to pre-renal state Diabetic chronic Kidney Disease (E11.22) Hypertensive Chronic Kidney Disease (I12.9) Chronic Kidney Disease (N18.9) Stage ? 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 Hypertension control with meds as ordered. Patient not on ACEI/ARB due to BUTCH ( add once BUTCH better). added lopressor, continue with norvasc Monitor Input/Output, daily weights and renal function with basic metabolic panel agree with IVF but changed to isotonic fluid as D5Ns due to decline in serum Na with 0.45% saline started with weekly Vit D supplemented [facility]UR sent urine analysis, spot protein/creatinine and albumin/creatinine ratio, 25- OH vitamin D, iPTH, phosphorus level HIV/Hep B and Hep C serology Dose meds/antibiotics for reduced GFR. Avoid fleets enema/magnesium based laxatives. Avoid nephrotoxins/NSAIDs/ iodinated contrast (unless needed emergently) Glycemic control, smoking cessation Further work up/management as per primary team Thanks for allowing me to participate in care of your patient. Will follow patient with you. Please call if any Qs. d/w and team Dr Placido Roe Office: [phone] Chief Complaint; none now reason for consult: BUTCH HPI: Pt is a 58 M with hx of diabetes Mellitus (5-6 years), hypertension (5-6 years), b/l vision loss due to glaucoma, active smoker, ex heroin in past, takes methadone now presented with complaints of persistent nausea/vomitting for last few days with upper abdomen pain. renal consult for BUTCH. pt or not aware about kidney disease in past Denies OTC/herbal meds has taken NSAIDs as alleve for few doses only. 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 No obvious episodes of low BP. feels better now. had egd done 04/15/18 ROS: Cardiovascular: No chest pain. Pulmonary: No shortness of breath Gastrointestinal: improved abdominal pain better nausea. no vomiting. Genitourinary: No pain while urinating. Denies blood in urine. reported decreased urine output All other negative Physical Examination: General Appearance: Comfortable, in no acute respiratory distress, co-operative . Vitals reviewed and noted as below Head; Atraumatic, normocephalic ENT: no ulcers no thrush. Tongue is midline. Oropharynx: no rash or ulcers. EYES: Pupils are equal, round and reactive to light accommodation. Eye muscles and extraocular movement intact. Sclera is anicteric. he is legally blind Neck; supple no lymphadenopathy, no thyromegaly or bruit Lungs: Normal respiratory rate/effort. Breath sounds bilateral equal and clear Heart: Normal rate. s1s2 normal. No rub or gallop. Extremities: no edema. No varicose veins Neurological: Patient is alert, awake and oriented to person, place and time. No focal deficit. Strength bilateral appropriate and equal Skin: Warm and dry. Normal turgor. No rash. Palpitation: Normal elasticity for age Abdomen: Abdomen is soft. Bowel sounds +. There is no abdominal tenderness, no guarding/rigidity no organomegaly Psych: limited insight and normal affect/mood MSK: no joint tenderness or swelling. Digits and nails normal, no deformity : kidney or bladder not palpable Labs/imaging reviewed. Past medical history, past surgical history, family history, social history, allergy reviewed and noted as below Family hx: no hx of CKD. Rest non-contributory renal imaging: b/l echogenic kidneys UA: 2+ protein Objective - Vital Signs/Intake and Output Vital Signs (last 24 hours): Temp Pulse Resp BP Pulse Ox 98.4 F 80 20 169/86 H 95 04/16/18 00:00 04/16/18 00:00 04/16/18 00:00 04/16/18 11:00 04/16/18 00:00 Intake and Output: 04/16/18 04/16/18 06:59 18:59 Intake Total 1690 Output Total 700 Balance 990 - Medications Medications: Current Medications Amlodipine Besylate (Norvasc) 10 mg PO DAILY [facility] Last Admin: 04/16/18 11:00 Dose: 10 mg Dextrose (Dextrose 50% Inj) 0 ml IV STAT PRN; Protocol PRN Reason: Hypoglycemia Protocol Dextrose (Glutose 15) 0 gm PO ONCE PRN; Protocol PRN Reason: Hypoglycemia Protocol Enoxaparin Sodium (Lovenox) 40 mg SC DAILY [facility] Last Admin: 04/16/18 11:00 Dose: 40 mg Ergocalciferol (Drisdol 50,000 Intl Units Cap) 1 cap PO Q7D [facility] Last Admin: 04/16/18 11:00 Dose: 1 cap Fluconazole (Diflucan) 200 mg PO DAILY [facility] PRN Reason: Protocol Stop: 04/29/18 23:59 Last Admin: 04/16/18 11:00 Dose: 200 mg Glucagon (Glucagen Diagnostic Kit) 0 mg IM STAT PRN; Protocol PRN Reason: Hypoglycemia Protocol Hydromorphone HCl (Dilaudid) 1 mg PO Q4H PRN PRN Reason: Pain, moderate (4-7) Last Admin: 04/15/18 17:47 Dose: 1 mg Dextrose (Dextrose 5% In Water 1000 Ml) 1,000 mls @ 0 mls/hr IV .Q0M PRN; Protocol; Per Protocol PRN Reason: Hypoglycemia Protocol Metronidazole (Flagyl) 500 mg in 100 mls @ 100 mls/hr IVPB Q8H [facility] PRN Reason: Protocol Last Admin: 04/16/18 13:00 Dose: 100 mls/hr Dextrose/Sodium Chloride (Dextrose 5%/0.9% Ns 1000 Ml) 1,000 mls @ 100 mls/hr IV .Q10H [facility] Last Admin: 04/16/18 12:15 Dose: 100 mls/hr Insulin Human Regular (Novolin R) 0 unit SC ACHS [facility] PRN Reason: Protocol Last Admin: 04/16/18 12:25 Dose: 2 unit Metoprolol Tartrate (Lopressor) 25 mg PO BID [facility] Last Admin: 04/16/18 11:00 Dose: 25 mg Ondansetron HCl (Zofran Inj) 4 mg IVP Q6 PRN PRN Reason: Nausea/Vomiting Pantoprazole Sodium (Protonix Inj) 40 mg IVP BID [facility] Last Admin: 04/16/18 11:00 Dose: 40 mg Pneumococcal Polyvalent Vaccine (Pneumovax 23 Vaccine) 0.5 ml IM .ONCE ONE Stop: 04/17/18 10:01 Sucralfate (Carafate Tab) 1 gm PO TID [facility] Last Admin: 04/16/18 13:35 Dose: 1 gm Trazodone HCl (Desyrel) 50 mg PO HS PRN PRN Reason: Insomnia - Labs Labs: 04/16/18 07:11 04/16/18 07:11 PT 13.5 SECONDS (9.7-12.2) H 04/14/18 16:35 INR 1.2 04/14/18 16:35
--- NOTE | 2018-04-17 01:19 | CON ---
DATE: 04/14/[address] Garcia to Dr. Jerrod Curry. I was called for GI consultation by the admitting MD as well as the medical staff in the floor. The patient is seen and fully examined on 04/14/2018. A short consultation handwriting sheet left in the chart. The entire chart is reviewed including but not limited to the most recent lab and radiology study results, current and the previous medication list, current and the previous medical events, allergies to medication list as well as all the available current and previous medical records. Case discussed with the staff at length. HISTORY OF PRESENT ILLNESS: This is a 58-year-old male who was admitted to the hospital through the emergency room due to recurrent episodes of severe nausea and vomiting with generalized weakness and malaise with reported elevated blood glucose level as outpatient and evidence of dehydration as well as leukocytosis. PAST MEDICAL HISTORY: The patient denies any significant complaint of shortness of breath, chest pain, palpitation, chills, fever, or evidence of active bleeding. Past medical history including mainly but not limited to, 1. Hypertension. 2. Diabetes mellitus. FAMILY HISTORY: Unknown. CURRENT MEDICATIONS: Post admission medication list was reviewed. ALLERGIES TO MEDICATIONS: UNCLEAR. After being admitted to the hospital, the patient was found to have leukocytes of 13 with mildly elevated hemoglobin and hematocrit, most likely secondary to dehydration. The patient also was found to have increased BUN of 75, creatinine 2.8. Blood glucose level 195. PHYSICAL EXAMINATION: GENERAL: A 58-year-old male, awake, alert, and oriented, complaining of severe crampy abdominal pain, seen in the presence of his . VITAL SIGNS: Afebrile with pulse of 86, respiratory rate 20 to 22, blood pressure of 192/104. HEENT: Showed pale oral mucoid membrane. Nonicteric sclerae. LYMPH NODES: No lymphadenitis or lymphadenopathy. LUNGS: Clear. Breathing sounds are present bilaterally but decreased at bases. HEART: Positive S1 and S2. ABDOMEN: Soft with diffuse generalized tenderness. No mass or organomegaly. No rebound tenderness or guarding. RECTAL: The patient refused. EXTREMITIES: Without any significant clubbing, cyanosis or edema. NEUROLOGIC: No reported new neurological deficits, sensory or motor. No reported new focal deficits. It has be mentioned that the patient appears to be somewhat lethargic and mild blindness was reported by the family and the primary MD. IMPRESSION: 1. Known history of poorly controlled diabetes mellitus. 2. Re-exacerbation of peptic ulcer disease with possible diabetic gastroparesis. 3. To rule out gastric versus duodenal ulcers. To rule out esophageal candidiasis. 4. Rule out early stage of acute pancreatitis. 5. Multiple past medical history including but not limited to the nearly poorly controlled hypertension, with diabetes mellitus and the possible diabetic retinopathy. 6. Renal insufficiency, most likely chronic. SUGGESTIONS: 1. Agree with your plan. 2. Rehydration. 3. Underlying poorly controlled hypertension. 4. Reglan IV. 5. Proton pump inhibitors IV. 6. Endoscopic evaluation of the upper GI tract when the patient is more stable clinically. 7. Cancer markers including CEA, CA 19-9, PSA. 8. Serum lipase, amylase level. 9. Abdominal ultrasound if it was not done. 10. Again endoscopic evaluation of the upper GI tract when the patient is more stable clinically. Further recommendation to follow. Thank you for letting me participate in your patient's case management. We will follow up closely with you. Tae Garcia MD
[2018-04-17] MEDS: Dextrose 5%/0.9% NS 1,000 ML IV SCH ×3 (03:24→18:03)
[2018-04-17] MEDS: metroNIDAZOLE IV 500 mg/100 ml 500 MG/100 ML BAG IVPB SCH ×3 (03:35→20:19)
[2018-04-17] MEDS: (Novolin R) Insulin Human Regular 100 units/ml vial SC SCH ×4 (08:30→21:51)
[2018-04-17] MEDS ORDERED: Pneumococcal 23-Valent Vaccine IM ONE (10:00)
[2018-04-17] MEDS: Enoxaparin 40 mg Syringe SC SCH (10:03)
--- NOTE | 2018-04-17 12:22 | PN ---
DATE: 04/17/2018 Location 369, bed B. SUBJECTIVE: This is a 58-year-old male seen and examined early in rounds with his at bedside. The entire chart is reviewed including but not limited to most recent lab and radiology study results, current and the previous medication list, current and the previous medical events. Case discussed with the staff at length. No reported active bleeding or recurrent episode of nausea and vomiting this morning. The patient is post upper endoscopy with biopsy. Biopsy report showed negative for Helicobacter pylori infection. The patient still has intermittent period of abdominal pain with dyspepsia and subsequent drop of his oral intake. No reported chest pain, significant shortness of breath, or palpitation. No chills or fever. Most recent lab results done yesterday showed leukocytosis of 11.7 with normal hemoglobin and hematocrit with mild increase of total bilirubin to 1.4, calcium 8.21, total protein 6, albumin 3.1. Latest blood glucose level 228. PHYSICAL EXAMINATION: GENERAL: A 58-year-old male, afebrile, with pulse of 80, respiratory rate 20-22, blood pressure of 156/84. HEENT: Showed dry oral mucous membranes. Slightly icteric sclerae bilaterally. LUNGS: A few scattered mild crepitation. Decreased air entry at bases. HEART: Positive S1 and S2. ABDOMEN: Soft with slight generalized tenderness. No mass or organomegaly. No rebound tenderness or guarding. EXTREMITIES: Without significant rubbing or cyanosis but lower extremity edematous changes. NEUROLOGIC: No reported new neurological deficits, sensory or motor. IMPRESSION: 1. Re-exacerbation of peptic ulcer disease with esophageal candidiasis and evidence of diabetic gastroparesis. 2. Poorly controlled diabetes mellitus. 3. Poorly controlled hypertension. 4. Mild renal insufficiency. 5. Electrolyte imbalance secondary to above. SUGGESTIONS: 1. Continue current management. 2. Creon 36,000 units p.o. one twice a day with meals. 3. Repeat stool for occult blood. 4. Follow up on cancer markers. 5. Further recommendation to follow. Tae Garcia MD
--- NOTE | 2018-04-17 18:13 | CP.PCM.PN ---
Subjective - Date & Time of Evaluation Date of Evaluation: 04/17/18 Time of Evaluation: 18:11 - Subjective Subjective: renal follow up note Nephrology Consultation Note: Assessment: Stable recurrent nausea/vomitting with gastritis duodenitis and candidiasis Acute Kidney Injury (N17.9) likely due to pre-renal state Diabetic chronic Kidney Disease (E11.22) Hypertensive Chronic Kidney Disease (I12.9) Chronic Kidney Disease (N18.9) Stage ? 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 Hypertension control with meds as ordered. Monitor Input/Output, daily weights and renal function with basic metabolic panel agree with IVF monitor lytes no labs today Physical Examination: General Appearance: Comfortable, in no acute respiratory distress, co-operative . Vitals reviewed and noted as below Head; Atraumatic, normocephalic ENT: no ulcers no thrush. Tongue is midline. Oropharynx: no rash or ulcers. EYES: Pupils are equal, round and reactive to light accommodation. Eye muscles and extraocular movement intact. Sclera is anicteric. he is legally blind Neck; supple no lymphadenopathy, no thyromegaly or bruit Lungs: Normal respiratory rate/effort. Breath sounds bilateral equal and clear Heart: Normal rate. s1s2 normal. No rub or gallop. Extremities: no edema. No varicose veins Neurological: Patient is alert, awake and oriented to person, place and time. No focal deficit. Strength bilateral appropriate and equal Skin: Warm and dry. Abdomen: Abdomen is soft. Bowel sounds +. There is no abdominal tenderness, no guarding/rigidity no organomegaly Psych: limited insight and normal affect/mood MSK: no joint tenderness or swelling. Objective - Vital Signs/Intake and Output Vital Signs (last 24 hours): Temp Pulse Resp BP Pulse Ox 98.5 F 73 20 154/83 H 98 04/17/18 16:00 04/17/18 16:00 04/17/18 16:00 04/17/18 17:39 04/17/18 16:00 Intake and Output: 04/17/18 04/17/18 06:59 18:59 Intake Total 1800 1100 Output Total 750 700 Balance 1050 400 - Medications Medications: Current Medications Amlodipine Besylate (Norvasc) 10 mg PO DAILY REPLACED BY [facility] Last Admin: 04/17/18 10:05 Dose: 10 mg Dextrose (Dextrose 50% Inj) 0 ml IV STAT PRN; Protocol PRN Reason: Hypoglycemia Protocol Dextrose (Glutose 15) 0 gm PO ONCE PRN; Protocol PRN Reason: Hypoglycemia Protocol Enoxaparin Sodium (Lovenox) 40 mg SC DAILY REPLACED BY [facility] Last Admin: 04/17/18 10:03 Dose: 40 mg Ergocalciferol (Drisdol 50,000 Intl Units Cap) 1 cap PO Q7D REPLACED BY [facility] Last Admin: 04/16/18 11:00 Dose: 1 cap Fluconazole (Diflucan) 200 mg PO DAILY REPLACED BY [facility] PRN Reason: Protocol Stop: 04/29/18 23:59 Last Admin: 04/17/18 10:05 Dose: 200 mg Glucagon (Glucagen Diagnostic Kit) 0 mg IM STAT PRN; Protocol PRN Reason: Hypoglycemia Protocol Hydromorphone HCl (Dilaudid) 1 mg PO Q4H PRN PRN Reason: Pain, moderate (4-7) Last Admin: 04/15/18 17:47 Dose: 1 mg Dextrose (Dextrose 5% In Water 1000 Ml) 1,000 mls @ 0 mls/hr IV .Q0M PRN; Protocol; Per Protocol PRN Reason: Hypoglycemia Protocol Metronidazole (Flagyl) 500 mg in 100 mls @ 100 mls/hr IVPB Q8H [facility] PRN Reason: Protocol Last Admin: 04/17/18 12:59 Dose: 100 mls/hr Dextrose/Sodium Chloride (Dextrose 5%/0.9% Ns 1000 Ml) 1,000 mls @ 100 mls/hr IV .Q10H REPLACED BY [facility] Last Admin: 04/17/18 18:03 Dose: 100 mls/hr Insulin Human Regular (Novolin R) 0 unit SC ACHS REPLACED BY [facility] PRN Reason: Protocol Last Admin: 04/17/18 16:45 Dose: 2 unit Metoprolol Tartrate (Lopressor) 25 mg PO BID REPLACED BY [facility] Last Admin: 04/17/18 17:39 Dose: 25 mg Ondansetron HCl (Zofran Inj) 4 mg IVP Q6 PRN PRN Reason: Nausea/Vomiting Pantoprazole Sodium (Protonix Inj) 40 mg IVP BID REPLACED BY [facility] Last Admin: 04/17/18 17:39 Dose: 40 mg Sucralfate (Carafate Tab) 1 gm PO TID REPLACED BY [facility] Last Admin: 04/17/18 17:39 Dose: 1 gm Trazodone HCl (Desyrel) 50 mg PO HS PRN PRN Reason: Insomnia Last Admin: 04/16/18 22:32 Dose: 50 mg - Labs Labs: 04/16/18 07:11 04/16/18 07:11 PT 13.5 SECONDS (9.7-12.2) H 04/14/18 16:35 INR 1.2 04/14/18 16:35
[2018-04-18] MEDS: metroNIDAZOLE IV 500 mg/100 ml 500 MG/100 ML BAG IVPB SCH ×3 (03:41→20:40)
[2018-04-18] MEDS: Dextrose 5%/0.9% NS 1,000 ML IV SCH ×3 (03:49→16:54)
[2018-04-18] MEDS: (Novolin R) Insulin Human Regular 100 units/ml vial SC SCH ×4 (08:30→21:42)
[2018-04-18] MEDS: Enoxaparin 40 mg Syringe SC SCH (10:06)
[2018-04-18] MEDS ORDERED: Peg-Electrolyte Oral Soln 4L (Golytely) PO ONE (11:00)
--- NOTE | 2018-04-18 13:44 | PN ---
DATE: 04/18/2018 LOCATION: 369, bed B. SUBJECTIVE: This is a 58-year-old male seen and examined in rounds without significant clinical changes or reported active bleeding, but with recent change of bowel movement habits as per the 's statement. It has to be mentioned that the case discussed at length with Dr. Curry. The entire chart is reviewed including but not limited to the most recent lab and radiology study results, current and the previous medication list, current and the previous medical events, and today's lab showed blood glucose level of 241, and the patient is still having elevated BUN and creatinine with low albumin and low total protein with negative hepatitis profile. PHYSICAL EXAMINATION: GENERAL: A 58-year-old male, awake, alert. VITAL SIGNS: Afebrile with pulse of 70, respiratory rate 20-22, blood pressure of 160/82. HEENT: Showed pale, dry oral mucous membrane. Nonicteric sclera. LUNGS: Few scattered crepitation. Decreased air entry at bases. HEART: Positive S1 and S2. ABDOMEN: Soft with mild generalized tenderness. No mass or organomegaly. No rebound tenderness or guarding. EXTREMITIES: Without significant clubbing, cyanosis or edema. NEUROLOGICAL: No reported new neurological deficits, sensory or motor. IMPRESSION: 1. Peptic ulcer disease with evidence of esophageal candidiasis and gastritis with evidence of diabetic gastroparesis. 2. Poorly-controlled diabetes mellitus. 3. Poorly-controlled hypertension. 4. Renal insufficiency. 5 Electrolyte imbalance. 6. Malnutrition with hypoalbuminemia, hypoproteinemia. 7. Change of bowel movement habit, no clear etiology. SUGGESTIONS: 1. Agree with your plan. 2. According to the family statement, the patient never had colonoscopy for colonoscopy and due to the recent change of his bowel movement. 3. This case again discussed at length with Dr. Curry. Tae Garcia MD
[2018-04-18] MEDS ORDERED: Bisacodyl 5mg EC Tab PO ONE (17:00)
[2018-04-19] MEDS: metroNIDAZOLE IV 500 mg/100 ml 500 MG/100 ML BAG IVPB SCH ×2 (03:08→12:10)
[2018-04-19] MEDS: Dextrose 5%/0.9% NS 1,000 ML IV SCH ×2 (03:13→10:32)
[2018-04-19 07:51] VITALS: BP 161/84; PULSE 78; TEMP 98.1; O2SAT 98
--- NOTE | 2018-04-19 07:56 | PN ---
DATE: 04/18/2018 The patient was getting bedrest, IV antibiotics, supportive care. Monitor blood sugar. Colonoscopy tomorrow. Jerrod Curry MD
[2018-04-19] MEDS: (Novolin R) Insulin Human Regular 100 units/ml vial SC SCH ×2 (08:20→12:10)
[2018-04-19] MEDS: Enoxaparin 40 mg Syringe SC SCH (10:31)
--- NOTE | 2018-04-19 11:41 | CP.PCM.PN ---
Subjective - Date & Time of Evaluation Date of Evaluation: 04/19/18 Time of Evaluation: 11:40 - Subjective Subjective: Progress note. Attending: Antoinette Birmingham seen and examined at bedside. No acute distress. No events overnight. No fevers, chills, vomiting, diarrhea. Objective - Vital Signs/Intake and Output Vital Signs (last 24 hours): Temp Pulse Resp BP Pulse Ox 98.1 F 78 20 161/84 H 98 04/19/18 07:49 04/19/18 07:49 04/19/18 07:49 04/19/18 10:30 04/19/18 07:49 Intake and Output: 04/19/18 04/19/18 06:59 18:59 Intake Total 2240 Output Total 900 Balance 1340 - Medications Medications: Current Medications Amlodipine Besylate (Norvasc) 10 mg PO DAILY [facility] Last Admin: 04/19/18 10:30 Dose: 10 mg Dextrose (Dextrose 50% Inj) 0 ml IV STAT PRN; Protocol PRN Reason: Hypoglycemia Protocol Dextrose (Glutose 15) 0 gm PO ONCE PRN; Protocol PRN Reason: Hypoglycemia Protocol Enoxaparin Sodium (Lovenox) 40 mg SC DAILY [facility] Last Admin: 04/19/18 10:31 Dose: 40 mg Ergocalciferol (Drisdol 50,000 Intl Units Cap) 1 cap PO Q7D [facility] Last Admin: 04/16/18 11:00 Dose: 1 cap Fluconazole (Diflucan) 200 mg PO DAILY [facility] PRN Reason: Protocol Stop: 04/29/18 23:59 Last Admin: 04/19/18 10:29 Dose: 200 mg Glucagon (Glucagen Diagnostic Kit) 0 mg IM STAT PRN; Protocol PRN Reason: Hypoglycemia Protocol Metronidazole (Flagyl) 500 mg in 100 mls @ 100 mls/hr IVPB Q8H [facility] PRN Reason: Protocol Last Admin: 04/19/18 03:08 Dose: 100 mls/hr Dextrose/Sodium Chloride (Dextrose 5%/0.9% Ns 1000 Ml) 1,000 mls @ 100 mls/hr IV .Q10H [facility] Last Admin: 04/19/18 10:32 Dose: Not Given Insulin Human Regular (Novolin R) 0 unit SC ACHS [facility] PRN Reason: Protocol Last Admin: 04/19/18 08:20 Dose: 1 unit Metoprolol Tartrate (Lopressor) 25 mg PO BID [facility] Last Admin: 04/19/18 10:30 Dose: 25 mg Ondansetron HCl (Zofran Inj) 4 mg IVP Q6 PRN PRN Reason: Nausea/Vomiting Pantoprazole Sodium (Protonix Inj) 40 mg IVP BID [facility] Last Admin: 04/19/18 10:31 Dose: 40 mg Sucralfate (Carafate Tab) 1 gm PO TID [facility] Last Admin: 04/19/18 10:28 Dose: 1 gm Trazodone HCl (Desyrel) 50 mg PO HS PRN PRN Reason: Insomnia Last Admin: 04/18/18 21:42 Dose: 50 mg - Labs Labs: 04/16/18 07:11 04/16/18 07:11 PT 13.5 SECONDS (9.7-12.2) H 04/14/18 16:35 INR 1.2 04/14/18 16:35 - Constitutional Appears: Chronically Ill - Head Exam Head Exam: ATRAUMATIC, NORMAL INSPECTION, NORMOCEPHALIC - Eye Exam Eye Exam: EOMI - ENT Exam ENT Exam: Mucous Membranes Moist - Neck Exam Neck Exam: Full ROM, Normal Inspection - Respiratory Exam Respiratory Exam: NORMAL BREATHING PATTERN. absent: Respiratory Distress - Cardiovascular Exam Cardiovascular Exam: +S1, +S2 - GI/Abdominal Exam GI & Abdominal Exam: Soft, Normal Bowel Sounds. absent: Tenderness - Extremities Exam Extremities Exam: Full ROM, Normal Inspection - Back Exam Back Exam: NORMAL INSPECTION - Neurological Exam Neurological Exam: Alert, Awake, Oriented x3 - Psychiatric Exam Psychiatric exam: Normal Affect, Normal Mood - Skin Skin Exam: Dry, Intact, Normal Color, Warm Assessment and Plan - Assessment and Plan (Free Text) Assessment: This is a 58 yo male with 1. Antonia esophagitis -GI consult. Dr. Real. recs appreciated. -dilaudid 1 mg po q 4 hrs prn -zofran prn -lipase 560 -abdominal ultrasound shows pancreas not well visualized -HIV negative -diflucan 200 -flagyl q 8 hrs -altered GI/hepatic diet 2. Vomiting -zofran prn nausea -no more vomiting -protonix IV bid -GI consult. recs appreciated. Dr. Real -add sucralfate 1 g po tid -endoscopy performed -biopsy pending -erythematous mucosa in antrum -duodenopathy 3. Increased BUN/CR -nephrology consult. Dr. Gamino. recs appreciated. Dr. Roe covering. -pt has ckd. 4. Hx of HTN -continue norvasc 10 mg po daily -add lopressor 5. hx of DM -ISS -hypoglycemia protocol -check HGB a 1C -check lipid panel 6. GI/DVT ppx -protonix iv bid -scds discussed with Dr. Curry
[2018-04-19 11:47] LABS: BASO % 0.3 % (0.0-2.0); EOS # 0.1 K/uL (0.0-0.7); EOS % 1.1 % (0.0-4.0); HEMOGLOBIN 12.7 g/dL (12.0-18.0); LYMPH # 2.8 K/uL (1.0-4.3); LYMPH % 32.3 % (20.0-40.0); MEAN CELL VOLUME 83.6 fL (80.0-94.0); MEAN CORPUSCULAR HEMOGLOBIN 27.8 pg (27.0-31.0); MEAN CORPUSCULAR HGB CONC 33.2 g/dL (33.0-37.0); MONO # 0.6 K/uL (0.0-0.8); MONO % 7.3 % (0.0-10.0); NEUT # 5.2 K/uL (1.8-7.0); RBC 4.57 Mil/uL (4.40-5.90); RED CELL DISTRIBUTION WIDTH 12.6 % (11.5-14.5); WHITE BLOOD COUNT 8.8 K/uL (4.8-10.8)
[2018-04-19 12:09] LABS: ALB/GLOB RATIO 1.1 (1.0-2.1); ALBUMIN 2.9 g/dL (3.5-5.0); CALCIUM 7.3 mg/dl (8.6-10.4)
--- NOTE | 2018-04-19 17:11 | PN ---
DATE: 04/19/2018 LOCATION: 369, bed B. SUBJECTIVE: This is a 58-year-old male seen and examined in the presence of his without reported active bleeding, nausea, or vomiting or significant complaint of shortness of breath. Again, the patient had been refusing colonoscopy. His was at bedside and was informant. The entire chart is reviewed including but not limited to the most recent lab and radiology study results, current and the previous medication list, current and the previous medical events. Case discussed with the staff at length. Today's lab showed normal CBC, potassium 3, creatinine 1.7, blood glucose level 298, AST 66, albumin 2.9, total protein 5.5. PHYSICAL EXAMINATION: GENERAL: A 58-year-old male tolerated oral intake. VITAL SIGNS: Afebrile with pulse of 74, respiratory rate 20 to 22, and blood pressure of 158/80. HEENT: Showed pale, dry oral mucous membrane. Nonicteric sclera. LUNGS: Few scattered mild crepitation. Breathing sounds present bilaterally. HEART: Positive S1 and S2. ABDOMEN: Soft with mild generalized tenderness. No mass or organomegaly. No rebound tenderness or guarding. EXTREMITIES: Mild lower extremity edematous changes. No clubbing or cyanosis. NEUROLOGIC: No reported new neurological deficit, sensory or motor. IMPRESSION: 1. Re-exacerbation of peptic ulcer disease. 2. Evidence of esophageal candidiasis with gastritis and diabetic gastroparesis. 3. Poorly-controlled hypertension. 4. Diabetes mellitus. 5. Electrolyte imbalance with hypokalemia. 6. Malnutrition with hypoalbuminemia. 7. Recent history of renal insufficiency. SUGGESTION: 1. Continue current management. 2. Follow up with cancer markers. 3. Guaiac all the stool daily x3. 4. Further recommendation to follow. Tae Garcia MD
== END 2018-04-19 13:52 | disposition home or self-care (01) | DRG 73 ==
LOC: C.ER 14:58 → C.9E 17:09 → C.3T 21:05
PROVIDERS: ADMIT Internal Medicine Pulmonary Disease; ATTEND Internal Medicine Pulmonary Disease
PROC: 0DB68ZX Excision of Stomach, Via Natural or Artificial Opening Endoscopic, Diagnostic (ICD-10-PCS; principal; 2018-04-15 11:26)
DX: E11.43 Type 2 diabetes mellitus with diabetic autonomic (poly)neuropathy (principal); K85.90 Acute pancreatitis without necrosis or infection, unspecified; B37.81 Candidal esophagitis; E46 Unspecified protein-calorie malnutrition; F11.23 Opioid dependence with withdrawal; N17.9 Acute kidney failure, unspecified; K27.3 Acute peptic ulcer, site unspecified, without hemorrhage or perforation; K92.0 Hematemesis; K31.84 Gastroparesis; E11.22 Type 2 diabetes mellitus with diabetic chronic kidney disease; E11.65 Type 2 diabetes mellitus with hyperglycemia; E55.9 Vitamin D deficiency, unspecified; E87.6 Hypokalemia; E86.0 Dehydration; F17.210 Nicotine dependence, cigarettes, uncomplicated; I12.9 Hypertensive chronic kidney disease with stage 1 through stage 4 chronic kidney disease, or unspecified chronic kidney disease; N18.9 Chronic kidney disease, unspecified; E11.319 Type 2 diabetes mellitus with unspecified diabetic retinopathy without macular edema; Z79.4 Long term (current) use of insulin; B19.20 Unspecified viral hepatitis C without hepatic coma; K29.70 Gastritis, unspecified, without bleeding

== ENCOUNTER 2018-04-22 18:32 | Emergency (ER) | payer BC ==
[2018-04-22 18:41] VITALS: BMI 26.2
[2018-04-22] MEDS ORDERED: Sodium Chloride 0.9% 1,000 ML IV ONE (19:01)
[2018-04-22 19:13] LABS: BASO # 0.1 K/uL (0.0-0.2); BASO % 0.5 % (0.0-2.0); EOS # 0.1 K/uL (0.0-0.7); EOS % 0.5 % (0.0-4.0); HEMOGLOBIN 13.9 g/dL (12.0-18.0); LYMPH # 3.1 K/uL (1.0-4.3); LYMPH % 26.2 % (20.0-40.0); MEAN CELL VOLUME 83.6 fL (80.0-94.0); MEAN CORPUSCULAR HEMOGLOBIN 27.4 pg (27.0-31.0); MEAN CORPUSCULAR HGB CONC 32.7 g/dL (33.0-37.0); MEAN PLATELET VOLUME 9.5 fL (7.2-11.7); MONO # 0.7 K/uL (0.0-0.8); MONO % 5.8 % (0.0-10.0); NEUT # 7.9 K/uL (1.8-7.0); NRBC % 0.1 % (0.0-2.0); RBC 5.08 Mil/uL (4.40-5.90); RED CELL DISTRIBUTION WIDTH 13.4 % (11.5-14.5); WHITE BLOOD COUNT 11.8 K/uL (4.8-10.8)
--- NOTE | 2018-04-22 19:17 | C.PDOC ---
History Of Present Illness 58 year old male brought in via EMS after having a seizure. Patient had a "[place] [employer]" wine cooler and marijuana when he became lightheaded, fell, and had a seizure as per . Patient became post ictal then had a recurrent seizure which prompted EMS call. On arrival patient is aaox3 and states he feels better. Denies Hx of seizures, tongue biting, or incontinence. Time Seen by Provider: 04/22/18 18:55 Chief Complaint (Nursing): Seizure History Per: Patient History/Exam Limitations: no limitations Recent Seizure Activity Began: Just Before Arrival Number Of Seizures: Multiple Length Of Seizures (Duration): Unknown Quality Of Seizure: Generalized Precipitating Factor(s): Recent Alcohol Ingestion, Recent Street Drugs Post-ictal Period: Yes Recent travel outside of the [place]: No Past Medical History Reviewed: Historical Data, Nursing Documentation, Vital Signs Vital Signs: Last Vital Signs Temp 98.7 F 04/22/18 21:52 Pulse 85 04/22/18 21:52 Resp 16 04/22/18 21:52 BP 164/92 H 04/22/18 21:52 Pulse Ox 98 04/22/18 22:00 - Medical History PMH: Diabetes, HTN - [facility] EXCISION OF STOMACH, ENDO, DIAGN (04/14/18) Family History: States: Unknown Family Hx - Social History Hx Alcohol Use: No Hx Substance Use: Yes Review Of Systems Except As Marked, All Systems Reviewed And Found Negative. Gastrointestinal: Negative for: Nausea, Vomiting Neurological: Positive for: Seizures Physical Exam - Physical Exam Appears: Non-toxic Skin: Normal Color, Warm, Dry Head: Atraumatic, Normacephalic Eye(s): bilateral: Normal Inspection, PERRL, EOMI Oral Mucosa: Moist Tongue: Normal Appearing, No Bite Neck: Normal, No Midline Cervical Tenderness, No Paracervical Tenderness, Supple Chest: Symmetrical, No Tenderness Cardiovascular: Rhythm Regular Respiratory: Normal Breath Sounds, No Rales, No Rhonchi, No Wheezing Gastrointestinal/Abdominal: Soft, No Tenderness Back: No Vertebral Tenderness, No Paraspinal Tenderness Extremity: Normal ROM (x4) Neurological/Psych: Oriented x3, Normal Speech Gait: Steady ED Course And Treatment - Laboratory Results Result Diagrams: 04/22/18 19:10 04/22/18 19:10 ECG: Interpreted By Me, Viewed By Me ECG Rhythm: Sinus Rhythm ECG Interpretation: Normal, No Changes From Prior Interpretation Of ECG: Normal intervals, normal axis, T wave inversions at avf, v4, v5, v6 Rate From EC O2 Sat by Pulse Oximetry: 98 (Room air) Pulse Ox Interpretation: Normal - CT Scan/US CT Head Other Rad Studies (CT/US): Read By Radiologist, Radiology Report Reviewed CT/US Interpretation: EXAM: CT Head Without Intravenous Contrast. CLINICAL HISTORY: 58 years old, male; Condition or disease; Other: Seizure. TECHNIQUE: Axial computed tomography images of the head/brain without intravenous contrast. All CT scans at. this facility use one or more dose reduction techniques, viz.: automated exposure control; ma/kV. adjustment per patient size (including targeted exams where dose is matched to indication; i.e. head); . or iterative reconstruction technique. COMPARISON: No relevant prior studies available. FINDINGS: Brain: Minimal volume loss is seen in keeping with age. Minimal decrease in attenuation of the. periventricular white matter likely related to small vessel ischemic change. The brain otherwise with. normal macdonald-white matter differentiation, demonstrating no edema, mass effect, acute hemorrhage, or. focal mass. Ventricles: Unremarkable. No ventriculomegaly. Bones/joints: Unremarkable. No acute fracture. Soft tissues : Unremarkable. Sinuses: Unremarkable as visualized. No acute sinusitis. Mastoid air cells: Unremarkable as visualized. No mastoid effusion. IMPRESSION : No acute intracranial findings are seen. No focal intracranial lesion is seen to serve as a nidus for. seizure activity. Medical Decision Making Medical Decision Making: Assessment: Seizures Plan: * CT head * EKG * Blood work * Urinalysis * IV fluids Case discussed with Dr. Mohamud, he was advised that patient does not wish to stay , as per Dr. Mohamud patient is okay for discharge home, advised he needs workup for new onset seizure, and states he does not need to be started on antiseizure medications at this time. This information was relayed to patient and patient's at bedside. Patient was told that recurrent seizure cannot be predicted at this time. Disposition Discussed With : Anant Mohamud Doctor Will See Patient In The: Office Counseled Patient/Family Regarding: Studies Performed, Diagnosis - Disposition Referrals: Anant Mohamud MD [Staff Provider] - Disposition: HOME/ ROUTINE Disposition Time: 21:59 Condition: STABLE Additional Instructions: follow up with Dr. Mohamud in 2 days call to make an appointment you do not wish to stay in hospital and state you would like to work up seizure as outpatient return to ER at any time. Instructions: Seizures Forms: [facility] ([place]se), General Discharge Instructions - Clinical Impression Clinical Impression: Seizure - Scribe Statement The provider has reviewed the documentation as recorded by the Scribe Madhav Nash All medical record entries made by the Scribe were at my direction and personally dictated by me. I have reviewed the chart and agree that the record accurately reflects my personal performance of the history, physical exam, medical decision making, and the department course for this patient. I have also personally directed, reviewed, and agree with the discharge instructions and disposition.
[2018-04-22 19:36] LABS: ALB/GLOB RATIO 1.2 (1.0-2.1); ALBUMIN 3.9 g/dL (3.5-5.0); ALT/SGPT 59 U/L (21-72); AST/SGOT 35 U/L (17-59); BLOOD UREA NITROGEN 16 mg/dL (9-20); CALCIUM 8.7 mg/dl (8.6-10.4); GFR AFRICAN-AMERICAN 44; GFR NON-AFRICAN AMERICAN 36
[2018-04-22 20:25] LABS: URINE BILIRUBIN NEGATIVE (NEGATIVE); URINE BLOOD NEGATIVE (NEGATIVE); URINE CLARITY Clear (Clear); URINE COLOR Yellow (YELLOW); URINE GLUCOSE (UA) NORMAL (Normal); URINE LEUKOCYTE ESTERASE NEG Leu/uL (Negative); URINE PROTEIN 2+ mg/dL (NEGATIVE); URINE UROBILINOGEN NORMAL mg/dL (0.2-1.0)
[2018-04-22 20:36] VITALS: RESP 16
[2018-04-22 20:41] LABS: BARBITURATES, UR NEGATIVE (NEGATIVE); BENZODIAZEPINES, UR NEGATIVE (NEGATIVE); OPIATES, UR NEGATIVE (NEGATIVE); PHENCYCLIDINE, UR NEGATIVE (NEGATIVE)
[2018-04-22 21:53] VITALS: BP 164/92; PULSE 85; TEMP 98.7
[2018-04-22 22:01] VITALS: O2SAT 98
--- NOTE | 2018-04-23 09:15 | CT ---
PROCEDURE: CT HEAD WITHOUT CONTRAST. HISTORY: Seizure COMPARISON: None available. TECHNIQUE: Axial computed tomography images were obtained through the head/brain without intravenous contrast. Radiation dose: Total exam DLP = 947.89 mGy-cm. This CT exam was performed using one or more of the following dose reduction techniques: Automated exposure control, adjustment of the mA and/or kV according to patient size, and/or use of iterative reconstruction technique. FINDINGS: HEMORRHAGE: No intracranial hemorrhage. BRAIN: There are mild chronic microangiopathic changes. There is no mass, mass effect or abnormal extra-axial fluid collection. VENTRICLES: There is mild age-related global parenchymal volume loss and proportionate enlargement of the ventricles and cortical sulci. CALVARIUM: The skull base and calvarium are normal. PARANASAL SINUSES: Predominantly clear. MASTOID AIR CELLS: Predominantly clear. OTHER FINDINGS: None. IMPRESSION: No acute intracranial abnormality. Mild chronic microangiopathic changes and mild age-related global parenchymal volume loss. A preliminary report was provided by [employer].
--- NOTE | 2018-04-25 15:31 | CARD ---
APPROVED REPORT EKG Measurement Heart [id number] <Conclusion> Normal sinus rhythm T wave abnormality, consider inferolateral ischemia Abnormal ECG
== END 2018-04-22 22:12 | disposition home or self-care (01) ==
LOC: C.ER 18:32
DX: R56.9 Unspecified convulsions (principal)
CPT/HCPCS: 70450; 80053; 81001; 82550; 82948; 84484; 85025; 93005; 99285; G0480

== ENCOUNTER 2018-05-07 23:48 | Inpatient (IN) | payer BC ==
[2018-05-07 23:48] VITALS: BMI 26.2
--- NOTE | 2018-05-08 00:53 | C.PDOC ---
History Of Present Illness <Vikas Hodge - Last Filed: 05/08/18 06:49> <Katty Richardson - Last Filed: 05/08/18 17:33> 58 year old male presents to the ER after having a hypoglycemic episode after being found unresponsive at home and possible seizure. Patient has a Hx of seizures in the past, last episode was a few weeks ago. As per , patient was having persistent vomiting for a month, he had a GI work up which was negative. Denies fever or chills. (Vikas Hodge) History Per: Patient History/Exam Limitations: no limitations Recent Seizure Activity Began: Unknown Number Of Seizures: One Length Of Seizures (Duration): Unknown Quality Of Seizure: Generalized Precipitating Factor(s): Other (Hypoglycemia) Post-ictal Period: No Recent travel outside of the [place]: No <Vikas Hodge - Last Filed: 05/08/18 06:49> <Katty Richardson - Last Filed: 05/08/18 17:33> Chief Complaint (Nursing): Seizure Past Medical History Reviewed: Historical Data, Nursing Documentation, Vital Signs - Medical History PMH: Diabetes, HTN Family History: States: Unknown Family Hx - Social History Hx Alcohol Use: No Hx Substance Use: Yes (pt denies) <Vikas Hodge - Last Filed: 05/08/18 06:49> Vital Signs: Last Vital Signs Temp 98.8 F 05/08/18 12:00 Pulse 97 H 05/08/18 15:00 Resp 21 05/08/18 15:00 BP 134/75 05/08/18 14:46 Pulse Ox 100 05/08/18 15:00 - [facility] Procedures EXCISION OF STOMACH, ENDO, DIAGN (04/14/18) Review Of Systems Constitutional: Negative for: Fever, Chills Cardiovascular: Negative for: Chest Pain, Palpitations Respiratory: Negative for: Cough, Shortness of Breath Gastrointestinal: Negative for: Nausea, Vomiting Genitourinary: Negative for: Incontinence Musculoskeletal: Negative for: Neck Pain, Back Pain Neurological: Positive for: Seizures <Vikas Hodge - Last Filed: 05/08/18 06:49> Physical Exam - Physical Exam Appears: Non-toxic, Other (Alert, conscious) Skin: Normal Color, Warm, Dry Head: Atraumatic, Normacephalic Eye(s): bilateral: Other (Legally blind) Oral Mucosa: Moist Neck: Normal, Supple Chest: Symmetrical, No Tenderness Cardiovascular: Rhythm Regular Respiratory: Normal Breath Sounds, No Rales, No Rhonchi, No Wheezing Gastrointestinal/Abdominal: Soft, No Tenderness Neurological/Psych: Oriented x3, Normal Speech, Other (No focal deficits) <Vikas Hodge - Last Filed: 05/08/18 06:49> ED Course And Treatment - Laboratory Results Result Diagrams: 05/08/18 00:17 05/08/18 00:39 ECG: Interpreted By Me, Viewed By Me ECG Rhythm: Sinus Rhythm, ST/T Changes ECG Interpretation: No Acute Changes, Abnormal Interpretation Of ECG: NSR, ST-T abnormality, no significant chnge from old tracings of 04/22/2018 Rate From EC O2 Sat by Pulse Oximetry: 100 (Room air) Pulse Ox Interpretation: Normal Progress Note: CT head, EKG, blood work, and urinalysis ordered. <Vikas Hodge - Last Filed: 05/08/18 06:49> - Laboratory Results Result Diagrams: 05/08/18 00:17 05/08/18 06:12 <Katty Richardson A - Last Filed: 05/08/18 17:33> Critical Care Time - Critical Care Note Total Time (in mins): 45 Documented critical care: time excludes all time spent performing seperately billable procedures. <Katty Richardson A - Last Filed: 05/08/18 17:33> Disposition Discussed With : Jerrod Curry Doctor Will See Patient In The: Hospital Counseled Patient/Family Regarding: Diagnosis - Disposition Disposition Time: 05:30 <Vikas Hodge - Last Filed: 05/08/18 06:49> - Disposition Disposition Time: 08:08 <Katty Richardson - Last Filed: 05/08/18 17:33> - Disposition Disposition: HOSPITALIZED Condition: GUARDED - Clinical Impression Clinical Impression: Hypoglycemia associated with diabetes, Hypokalemia, Seizure - Scribe Statement The provider has reviewed the documentation as recorded by the Scribe <Vikas Hodge - Last Filed: 05/08/18 06:49> <Katty Richardson A - Last Filed: 05/08/18 17:33> - Scribe Statement Madhav Nash All medical record entries made by the Scribe were at my direction and personally dictated by me. I have reviewed the chart and agree that the record accurately reflects my personal performance of the history, physical exam, medical decision making, and the department course for this patient. I have also personally directed, reviewed, and agree with the discharge instructions and disposition. (Vikas Hodge) Addendum <Vikas Hodge - Last Filed: 05/08/18 06:49> <Katty Richardson - Last Filed: 05/08/18 17:33> Addendum: 05/08/18 07:16 Patient resting comfortably, awake & alert. Pending repeat chemistry as per night posting clerk Dr. Dodd. Day posting clerk Dr. Kevin aware. 05/08/18 08:08 Repeat accucheck 71 at 7:57, 118 at 7:19, 143 at 6:50. Patient continues to drop blood sugar despite multiple boluses of D50, IV D10 drip, IV glucagon and IV solumedrol. Patient not appropriate for telemetry. Spoke with Dr. Kevin posting clerk, agrees with ICU upgrade. (Katty Richardson) Decision To Admit <Vikas Hodge - Last Filed: 05/08/18 06:49> - Pt Status Changed To: Hospital Disposition Of: Inpatient - Admit Certification Admit to Inpatient:: After my assessment, the patient will require hospitalization for at least two midnights. This is because of the severity of symptoms shown, intensity of services needed, and/or the medical risk in this patient being treated as an outpatient. - InPatient: Physician Admission Certification: I certify that this patient requires 2 or more midnights of care for the following reason:: see notes - . Bed Request Type: ICU Admitting Physician: Jerrod Curry <Katty Richardson - Last Filed: 05/08/18 17:33> - . Patient Diagnosis: Hypoglycemia associated with diabetes, Hypokalemia
[2018-05-08 01:05] LABS: BASO # 0.1 K/uL (0.0-0.2); BASO % 0.5 % (0.0-2.0); EOS % 0.1 % (0.0-4.0); HEMOGLOBIN 16.2 g/dL (12.0-18.0); LYMPH # 2.5 K/uL (1.0-4.3); LYMPH % 15.1 % (20.0-40.0); MEAN CELL VOLUME 81.6 fL (80.0-94.0); MEAN CORPUSCULAR HEMOGLOBIN 27.4 pg (27.0-31.0); MEAN CORPUSCULAR HGB CONC 33.6 g/dL (33.0-37.0); MEAN PLATELET VOLUME 9.2 fL (7.2-11.7); MONO # 1.1 K/uL (0.0-0.8); MONO % 6.6 % (0.0-10.0); NEUT # 13.1 K/uL (1.8-7.0); NEUT % 77.7 % (50.0-75.0); NRBC % 0.2 % (0.0-2.0); RBC 5.92 Mil/uL (4.40-5.90); RED CELL DISTRIBUTION WIDTH 12.8 % (11.5-14.5); WHITE BLOOD COUNT 16.8 K/uL (4.8-10.8)
[2018-05-08 01:17] LABS: ALB/GLOB RATIO 1.2 (1.0-2.1); CALCIUM 8.3 mg/dl (8.6-10.4)
[2018-05-08] MEDS ORDERED: Dextrose 50% SYRINGE Inj (50 ml) ONE ×3 (01:40→08:33)
[2018-05-08] MEDS ORDERED: Dextrose 50% SYRINGE Inj (50 ml) IV STA ×5 (01:45→06:00)
[2018-05-08] MEDS ORDERED: Potassium Chloride 20 mEq 100 ML ONE (02:12)
[2018-05-08] MEDS ORDERED: Dextrose 25% Inj (10ml) ONE (02:57)
[2018-05-08 04:30] LABS: URINE BILIRUBIN NEGATIVE (NEGATIVE); URINE BLOOD 1+ (NEGATIVE); URINE CLARITY Clear (Clear); URINE COLOR Yellow (YELLOW); URINE GLUCOSE (UA) 2+ mg/dL (Normal); URINE LEUKOCYTE ESTERASE NEG Leu/uL (Negative); URINE PROTEIN 2+ mg/dL (NEGATIVE); URINE UROBILINOGEN NORMAL mg/dL (0.2-1.0)
[2018-05-08] MEDS ORDERED: Glucagon Recombinant 1 mg Inj IM STA (04:34)
[2018-05-08] MEDS ORDERED: MethylPREDNISolone 40 mg Vial IVP STA (04:42)
[2018-05-08] MEDS ORDERED: Glucagon Recombinant 1 mg Inj IV STA (04:42)
[2018-05-08 07:20] LABS: CALCIUM 7.6 mg/dl (8.6-10.4)
[2018-05-08 07:22] LABS: ALB/GLOB RATIO 1.2 (1.0-2.1)
[2018-05-08 08:14] LABS: BARBITURATES, UR NEGATIVE (NEGATIVE); BENZODIAZEPINES, UR NEGATIVE (NEGATIVE); OPIATES, UR NEGATIVE (NEGATIVE); PHENCYCLIDINE, UR NEGATIVE (NEGATIVE)
[2018-05-08] MEDS ORDERED: Dextrose 50% SYRINGE Inj (50 ml) IVP STA (08:27)
--- NOTE | 2018-05-08 08:42 | CT ---
PROCEDURE: CT HEAD WITHOUT CONTRAST. HISTORY: Headache COMPARISON: None comparison made with prior CT scan brain 04/22/2018. TECHNIQUE: Axial computed tomography images were obtained through the head/brain without intravenous contrast. Radiation dose: Total exam DLP = 947.89 mGy-cm. This CT exam was performed using one or more of the following dose reduction techniques: Automated exposure control, adjustment of the mA and/or kV according to patient size, and/or use of iterative reconstruction technique. FINDINGS: HEMORRHAGE: No intracranial hemorrhage. BRAIN: Mild chronic periventricular white matter ischemic changes. . Mild moderate central volume loss. VENTRICLES: No obstructive hydrocephalus however there is persistent slight asymmetry of the lateral ventricles on right side slightly larger than the left likely a anatomic variation. CALVARIUM: Unremarkable. PARANASAL SINUSES: Unremarkable as visualized. No significant inflammatory changes. MASTOID AIR CELLS: Unremarkable as visualized. No inflammatory changes. OTHER FINDINGS: None. IMPRESSION: No acute intracranial hemorrhage. Mild chronic white matter ischemic changes. Mild moderate central volume loss.
[2018-05-08] MEDS ORDERED: Potassium Chloride 20 mEq ER Tab PO ONE (11:30)
--- NOTE | 2018-05-08 13:30 | CP.PCM.CON ---
History of Present Illness - History of Present Illness History of Present Illness: ICU consult for hypoglycemia Patient is 58-year-old male with history of hypertension, diabetes, presented to the ER after being found unresponsive at home with low sugar and possible seizure. Patient has a Hx of seizures in the past, last episode was a few weeks ago. As per , patient was having persistent vomiting for a month, he had a GI work up which was negative. Past Patient History - Past Medical History & Family History Past Medical History?: Yes - Past Social History Smoking Status: Light Smoker < 10 Cigarettes Daily - CARDIAC Hx Hypertension: Yes - HEENT Hx HEENT Problems: Yes Hx Blind: Yes (LEGALLY) - ENDOCRINE/METABOLIC Hx Diabetes Mellitus Type 2: Yes (insulin ndependent) - MUSCULOSKELETAL/RHEUMATOLOGICAL Hx Falls: No - PSYCHIATRIC Hx Substance Use: Yes (pt denies) - ANESTHESIA Hx Anesthesia: Yes Hx Anesthesia Reactions: No Meds Allergies/Adverse Reactions: Allergies Allergy/AdvReac Type Severity Reaction Status Date / Time No Known Allergies Allergy Verified 05/08/18 00:01 - Medications Medications: Current Medications Dextrose (Dextrose 10% In Water) 1,000 mls @ 100 mls/hr IV .Q10H [facility] Last Admin: 05/08/18 04:42 Dose: 100 mls/hr Physical Exam - Head Exam Head Exam: ATRAUMATIC, NORMOCEPHALIC - ENT Exam ENT Exam: Mucous Membranes Moist - Respiratory Exam Respiratory Exam: Clear to Auscultation Bilateral - Cardiovascular Exam Cardiovascular Exam: REGULAR RHYTHM Results - Vital Signs Recent Vital Signs: Last Vital Signs Temp Pulse 92 H 05/08/18 07:46 Resp 22 05/08/18 07:46 BP 148/98 H 05/08/18 07:46 Pulse Ox 100 05/08/18 07:46 - Labs Result Diagrams: 05/08/18 00:17 05/08/18 06:12 Labs: Laboratory Results - last 24 hr 05/07/18 05/08/18 05/08/18 23:53 00:17 00:39 WBC 16.8 H RBC 5.92 H Hgb 16.2 D Hct 48.3 MCV 81.6 D MCH 27.4 MCHC 33.6 RDW 12.8 Plt Count 336 MPV 9.2 Neut % (Auto) 77.7 H Lymph % (Auto) 15.1 L O'Brien % (Auto) 6.6 Eos % (Auto) 0.1 Baso % (Auto) 0.5 Neut # (Auto) 13.1 H Lymph # (Auto) 2.5 O'Brien # (Auto) 1.1 H Eos # (Auto) 0.0 Baso # (Auto) 0.1 Sodium 135 Potassium 2.4 L* D Chloride 93 L Carbon Dioxide 18 L Anion Gap 27 H BUN 47 H Creatinine 2.4 H Est GFR ( Amer) 34 Est GFR (Non-Af Amer) 28 POC Glucose (mg/dL) 228 H Random Glucose 145 H Calcium 8.3 L Phosphorus Magnesium Total Bilirubin 1.4 H AST 53 ALT 46 Alkaline Phosphatase 151 H Total Protein 7.3 Albumin 4.0 Globulin 3.3 Albumin/Globulin Ratio 1.2 Urine Color Urine Clarity Urine pH Ur Specific [place] Urine Protein Urine Glucose (UA) Urine Ketones Urine Blood Urine Nitrate Urine Bilirubin Urine Urobilinogen Ur Leukocyte Esterase Urine WBC (Auto) Urine RBC (Auto) Urine Opiates Screen Urine Methadone Screen Ur Barbiturates Screen Ur Phencyclidine Scrn Ur Amphetamines Screen U Benzodiazepines Scrn U Oth Cocaine Metabols U Cannabinoids Screen 05/08/18 05/08/18 05/08/18 01:36 02:00 02:44 WBC RBC Hgb Hct MCV MCH MCHC RDW Plt Count MPV Neut % (Auto) Lymph % (Auto) O'Brien % (Auto) Eos % (Auto) Baso % (Auto) Neut # (Auto) Lymph # (Auto) O'Brien # (Auto) Eos # (Auto) Baso # (Auto) Sodium Potassium Chloride Carbon Dioxide Anion Gap BUN Creatinine Est GFR ( Amer) Est GFR (Non-Af Amer) POC Glucose (mg/dL) < 20 L* 104 < 20 L* Random Glucose Calcium Phosphorus Magnesium Total Bilirubin AST ALT Alkaline Phosphatase Total Protein Albumin Globulin Albumin/Globulin Ratio Urine Color Urine Clarity Urine pH Ur Specific [place] Urine Protein Urine Glucose (UA) Urine Ketones Urine Blood Urine Nitrate Urine Bilirubin Urine Urobilinogen Ur Leukocyte Esterase Urine WBC (Auto) Urine RBC (Auto) Urine Opiates Screen Urine Methadone Screen Ur Barbiturates Screen Ur Phencyclidine Scrn Ur Amphetamines Screen U Benzodiazepines Scrn U Oth Cocaine Metabols U Cannabinoids Screen 05/08/18 05/08/18 05/08/18 02:48 03:01 04:15 WBC RBC Hgb Hct MCV MCH MCHC RDW Plt Count MPV Neut % (Auto) Lymph % (Auto) O'Brien % (Auto) Eos % (Auto) Baso % (Auto) Neut # (Auto) Lymph # (Auto) O'Brien # (Auto) Eos # (Auto) Baso # (Auto) Sodium Potassium Chloride Carbon Dioxide Anion Gap BUN Creatinine Est GFR ( Amer) Est GFR (Non-Af Amer) POC Glucose (mg/dL) 243 H 175 H 26 L* Random Glucose Calcium Phosphorus Magnesium Total Bilirubin AST ALT Alkaline Phosphatase Total Protein Albumin Globulin Albumin/Globulin Ratio Urine Color Urine Clarity Urine pH Ur Specific [place] Urine Protein Urine Glucose (UA) Urine Ketones Urine Blood Urine Nitrate Urine Bilirubin Urine Urobilinogen Ur Leukocyte Esterase Urine WBC (Auto) Urine RBC (Auto) Urine Opiates Screen Urine Methadone Screen Ur Barbiturates Screen Ur Phencyclidine Scrn Ur Amphetamines Screen U Benzodiazepines Scrn U Oth Cocaine Metabols U Cannabinoids Screen 05/08/18 05/08/18 05/08/18 04:23 04:44 05:18 WBC RBC Hgb Hct MCV MCH MCHC RDW Plt Count MPV Neut % (Auto) Lymph % (Auto) O'Brien % (Auto) Eos % (Auto) Baso % (Auto) Neut # (Auto) Lymph # (Auto) O'Brien # (Auto) Eos # (Auto) Baso # (Auto) Sodium Potassium Chloride Carbon Dioxide Anion Gap BUN Creatinine Est GFR ( Amer) Est GFR (Non-Af Amer) POC Glucose (mg/dL) 125 H 116 H Random Glucose Calcium Phosphorus Magnesium Total Bilirubin AST ALT Alkaline Phosphatase Total Protein Albumin Globulin Albumin/Globulin Ratio Urine Color Yellow Urine Clarity Clear Urine pH 5.0 Ur Specific [place] 1.013 Urine Protein 2+ H Urine Glucose (UA) 2+ H Urine Ketones Negative Urine Blood 1+ H Urine Nitrate Negative Urine Bilirubin Negative Urine Urobilinogen Normal Ur Leukocyte Esterase Neg Urine WBC (Auto) < 1 Urine RBC (Auto) < 1 Urine Opiates Screen Urine Methadone Screen Ur Barbiturates Screen Ur Phencyclidine Scrn Ur Amphetamines Screen U Benzodiazepines Scrn U Oth Cocaine Metabols U Cannabinoids Screen 05/08/18 05/08/18 05/08/18 05:52 06:12 06:50 WBC RBC Hgb Hct MCV MCH MCHC RDW Plt Count MPV Neut % (Auto) Lymph % (Auto) O'Brien % (Auto) Eos % (Auto) Baso % (Auto) Neut # (Auto) Lymph # (Auto) O'Brien # (Auto) Eos # (Auto) Baso # (Auto) Sodium 128 L Potassium 3.0 L Chloride 91 L Carbon Dioxide 28 Anion Gap 12 BUN 43 H Creatinine 2.0 H Est GFR ( Amer) 42 Est GFR (Non-Af Amer) 34 POC Glucose (mg/dL) 83 143 H Random Glucose 205 H Calcium 7.6 L Phosphorus 3.8 Magnesium 1.8 Total Bilirubin 1.8 H AST 36 ALT 42 Alkaline Phosphatase 108 Total Protein 5.6 L Albumin 3.0 L D Globulin 2.6 Albumin/Globulin Ratio 1.2 Urine Color Urine Clarity Urine pH Ur Specific [place] Urine Protein Urine Glucose (UA) Urine Ketones Urine Blood Urine Nitrate Urine Bilirubin Urine Urobilinogen Ur Leukocyte Esterase Urine WBC (Auto) Urine RBC (Auto) Urine Opiates Screen Urine Methadone Screen Ur Barbiturates Screen Ur Phencyclidine Scrn Ur Amphetamines Screen U Benzodiazepines Scrn U Oth Cocaine Metabols U Cannabinoids Screen 05/08/18 05/08/18 05/08/18 07:19 07:53 07:57 WBC RBC Hgb Hct MCV MCH MCHC RDW Plt Count MPV Neut % (Auto) Lymph % (Auto) O'Brien % (Auto) Eos % (Auto) Baso % (Auto) Neut # (Auto) Lymph # (Auto) O'Brien # (Auto) Eos # (Auto) Baso # (Auto) Sodium Potassium Chloride Carbon Dioxide Anion Gap BUN Creatinine Est GFR ( Amer) Est GFR (Non-Af Amer) POC Glucose (mg/dL) 118 H 71 Random Glucose Calcium Phosphorus Magnesium Total Bilirubin AST ALT Alkaline Phosphatase Total Protein Albumin Globulin Albumin/Globulin Ratio Urine Color Urine Clarity Urine pH Ur Specific [place] Urine Protein Urine Glucose (UA) Urine Ketones Urine Blood Urine Nitrate Urine Bilirubin Urine Urobilinogen Ur Leukocyte Esterase Urine WBC (Auto) Urine RBC (Auto) Urine Opiates Screen Negative Urine Methadone Screen Negative Ur Barbiturates Screen Negative Ur Phencyclidine Scrn Negative Ur Amphetamines Screen Negative U Benzodiazepines Scrn Negative U Oth Cocaine Metabols Negative U Cannabinoids Screen Negative 05/08/18 05/08/18 05/08/18 08:27 11:24 13:16 WBC RBC Hgb Hct MCV MCH MCHC RDW Plt Count MPV Neut % (Auto) Lymph % (Auto) O'Brien % (Auto) Eos % (Auto) Baso % (Auto) Neut # (Auto) Lymph # (Auto) O'Brien # (Auto) Eos # (Auto) Baso # (Auto) Sodium Potassium Chloride Carbon Dioxide Anion Gap BUN Creatinine Est GFR ( Amer) Est GFR (Non-Af Amer) POC Glucose (mg/dL) 68 171 H 268 H Random Glucose Calcium Phosphorus Magnesium Total Bilirubin AST ALT Alkaline Phosphatase Total Protein Albumin Globulin Albumin/Globulin Ratio Urine Color Urine Clarity Urine pH Ur Specific [place] Urine Protein Urine Glucose (UA) Urine Ketones Urine Blood Urine Nitrate Urine Bilirubin Urine Urobilinogen Ur Leukocyte Esterase Urine WBC (Auto) Urine RBC (Auto) Urine Opiates Screen Urine Methadone Screen Ur Barbiturates Screen Ur Phencyclidine Scrn Ur Amphetamines Screen U Benzodiazepines Scrn U Oth Cocaine Metabols U Cannabinoids Screen Assessment & Plan (1) Hypoglycemia associated with diabetes Status: Acute Comment: most likely secondary to oral hypoglycemic and insulin. Continue D10. Accu-Chek every hour. Follow-up chemistry. Workup for hypoglycemia if no change. hold Oral hypoglycemic agent
[2018-05-08 18:25] LABS: BARBITURATES, UR NEGATIVE (NEGATIVE); BENZODIAZEPINES, UR NEGATIVE (NEGATIVE); OPIATES, UR NEGATIVE (NEGATIVE); PHENCYCLIDINE, UR NEGATIVE (NEGATIVE)
[2018-05-08] MEDS ORDERED: Pantoprazole 40 mg EC Tab PO STA (19:50)
[2018-05-08 21:09] LABS: CALCIUM 8.5 mg/dl (8.6-10.4)
[2018-05-08] MEDS: Sodium Chloride 0.9% 1,000 ML IV SCH (22:16)
[2018-05-08] MEDS ORDERED: Aluminum Hydroxide/Magnesium Hydroxide Susp (30 mL) PO STA (23:51)
[2018-05-09 01:18] LABS: CK-MB 2.07 ng/mL (0.0-3.38); TROPONIN I 0.029 ng/mL (0.00-0.120)
[2018-05-09] MEDS ORDERED: Aluminum Hydroxide/Magnesium Hydroxide Susp (30 mL) PO STA (05:43)
[2018-05-09 08:20] LABS: BASO # 0.1 K/uL (0.0-0.2); BASO % 0.3 % (0.0-2.0); EOS % 0.1 % (0.0-4.0); LYMPH # 3.2 K/uL (1.0-4.3); LYMPH % 18.4 % (20.0-40.0); MEAN CELL VOLUME 82.6 fL (80.0-94.0); MEAN CORPUSCULAR HEMOGLOBIN 27.6 pg (27.0-31.0); MEAN CORPUSCULAR HGB CONC 33.4 g/dL (33.0-37.0); MEAN PLATELET VOLUME 9.7 fL (7.2-11.7); MONO # 1.2 K/uL (0.0-0.8); MONO % 6.7 % (0.0-10.0); NEUT % 74.5 % (50.0-75.0); RBC 5.44 Mil/uL (4.40-5.90); RED CELL DISTRIBUTION WIDTH 13.1 % (11.5-14.5); WHITE BLOOD COUNT 17.5 K/uL (4.8-10.8)
[2018-05-09 08:30] LABS: ALB/GLOB RATIO 1.2 (1.0-2.1); ALBUMIN 3.6 g/dL (3.5-5.0); CALCIUM 8.3 mg/dl (8.6-10.4)
[2018-05-09] MEDS: Sodium Chloride 0.9% 1,000 ML IV SCH ×2 (10:05→18:28)
--- NOTE | 2018-05-09 10:17 | RAD ---
PROCEDURE: CHEST RADIOGRAPH, 1 VIEW HISTORY: ELEVATED WBC COMPARISON: Comparison chest dated 04/14/2018 FINDINGS: LUNGS: Clear. PLEURA: No pneumothorax or pleural fluid seen. CARDIOVASCULAR: Normal. OSSEOUS STRUCTURES: No significant abnormalities. VISUALIZED UPPER ABDOMEN: Normal. OTHER FINDINGS: None. IMPRESSION: No active disease.
--- NOTE | 2018-05-09 11:51 | HP ---
HISTORY OF PRESENT ILLNESS: A 58-year-old male with diabetes. The patient had drug abuse in the past. Admitted to the hospital with a chief complaint of severe hypoglycemia, loss of consciousness, fever. The patient has been vomiting, insulin. The patient came to the ER, found to have severe hypoglycemia per history, was sent to ICU. PHYSICAL EXAMINATION: GENERAL: The patient is awake, alert, and oriented. VITAL SIGNS: Temperature 98, pulse 90. HEENT: Within normal limits. NECK: Supple. CHEST: Symmetrical. HEART: Regular. ABDOMEN: Soft. EXTREMITIES: No edema. IMPRESSION: Severe hypoglycemia, gastritis, blindness. The patient with IV glucose. Monitor blood sugar. Jerrod Curry MD
--- NOTE | 2018-05-09 22:52 | CP.PCM.CON ---
History of Present Illness - History of Present Illness History of Present Illness: CC: Chest Pain Patient is 58-year-old male with history of hypertension, diabetes, presented to the ER after being found unresponsive at home with low sugar and possible seizure. Patient has a Hx of seizures in the past, last episode was a few weeks ago. As per , patient was having persistent vomiting for a month, he had a GI work up which was negative. Patient c/o right sided chest pain and non exertional Physical Exam - Head Exam Head Exam: ATRAUMATIC, NORMOCEPHALIC - ENT Exam ENT Exam: Mucous Membranes Moist - Respiratory Exam Respiratory Exam: Clear to Auscultation Bilateral - Cardiovascular Exam Cardiovascular Exam: REGULAR RHYTHM Past Patient History - Past Medical History & Family History Past Medical History?: Yes - Past Social History Smoking Status: Light Smoker < 10 Cigarettes Daily - CARDIAC Hx Hypertension: Yes - NEUROLOGICAL Hx Seizures: Yes (Prior to arrival in ED) - HEENT Hx HEENT Problems: Yes Hx Blind: Yes (LEGALLY) - ENDOCRINE/METABOLIC Hx Diabetes Mellitus Type 2: Yes (insulin ndependent) - MUSCULOSKELETAL/RHEUMATOLOGICAL Hx Falls: No - PSYCHIATRIC Hx Substance Use: Yes (pt denies) - ANESTHESIA Hx Anesthesia: Yes Hx Anesthesia Reactions: No Meds Allergies/Adverse Reactions: Allergies Allergy/AdvReac Type Severity Reaction Status Date / Time No Known Allergies Allergy Verified 05/08/18 00:01 - Medications Medications: Current Medications Sodium Chloride (Sodium Chloride 0.9%) 1,000 mls @ 100 mls/hr IV .Q10H [facility] Last Admin: 05/09/18 18:28 Dose: 100 mls/hr Pantoprazole Sodium (Protonix Inj) 40 mg IVP DAILY [facility] Last Admin: 05/09/18 10:04 Dose: 40 mg Results - Vital Signs Recent Vital Signs: Last Vital Signs Temp 98.8 F 05/09/18 20:00 Pulse 88 05/09/18 16:06 Resp 19 05/09/18 16:06 BP 154/100 H 05/09/18 16:06 Pulse Ox 98 05/09/18 16:06 - Labs Result Diagrams: 05/09/18 08:06 05/09/18 08:06 Labs: Laboratory Results - last 24 hr 05/08/18 05/09/18 05/09/18 23:44 00:55 05:11 WBC RBC Hgb Hct MCV MCH MCHC RDW Plt Count MPV Neut % (Auto) Lymph % (Auto) Park % (Auto) Eos % (Auto) Baso % (Auto) Neut # (Auto) Lymph # (Auto) [place] # (Auto) Eos # (Auto) Baso # (Auto) Sodium Potassium Chloride Carbon Dioxide Anion Gap BUN Creatinine Est GFR ( Amer) Est GFR (Non-Af Amer) POC Glucose (mg/dL) 278 H 225 H Random Glucose Calcium Total Bilirubin AST ALT Alkaline Phosphatase Total Creatine Kinase 291 H CK-MB (Mass) 2.07 Troponin I 0.0290 Total Protein Albumin Globulin Albumin/Globulin Ratio 05/09/18 05/09/18 05/09/18 07:25 08:06 08:06 WBC 17.5 H RBC 5.44 Hgb 15.0 Hct 44.9 MCV 82.6 MCH 27.6 MCHC 33.4 RDW 13.1 Plt Count 312 MPV 9.7 Neut % (Auto) 74.5 Lymph % (Auto) 18.4 L Park % (Auto) 6.7 Eos % (Auto) 0.1 Baso % (Auto) 0.3 Neut # (Auto) 13.0 H Lymph # (Auto) 3.2 Park # (Auto) 1.2 H Eos # (Auto) 0.0 Baso # (Auto) 0.1 Sodium 132 Potassium 4.3 Chloride 98 Carbon Dioxide 24 Anion Gap 15 BUN 36 H Creatinine 1.9 H Est GFR ( Amer) 44 Est GFR (Non-Af Amer) 36 POC Glucose (mg/dL) 237 H Random Glucose 212 H Calcium 8.3 L Total Bilirubin 1.7 H AST 35 ALT 43 Alkaline Phosphatase 141 H D Total Creatine Kinase CK-MB (Mass) Troponin I Total Protein 6.7 Albumin 3.6 Globulin 3.1 Albumin/Globulin Ratio 1.2 05/09/18 05/09/18 05/09/18 11:26 15:55 19:56 WBC RBC Hgb Hct MCV MCH MCHC RDW Plt Count MPV Neut % (Auto) Lymph % (Auto) Park % (Auto) Eos % (Auto) Baso % (Auto) Neut # (Auto) Lymph # (Auto) [place] # (Auto) Eos # (Auto) Baso # (Auto) Sodium Potassium Chloride Carbon Dioxide Anion Gap BUN Creatinine Est GFR ( Amer) Est GFR (Non-Af Amer) POC Glucose (mg/dL) 154 H 97 162 H Random Glucose Calcium Total Bilirubin AST ALT Alkaline Phosphatase Total Creatine Kinase CK-MB (Mass) Troponin I Total Protein Albumin Globulin Albumin/Globulin Ratio Assessment & Plan (1) Chest pain Assessment and Plan: Given description unlikely cardiac Trops negative Check ECHO If wall motion abnormalities or recurrent betsy pain will get stress test Status: Acute
[2018-05-10] MEDS: Sodium Chloride 0.9% 1,000 ML IV SCH (04:23)
[2018-05-10 06:18] LABS: BASO # 0.1 K/uL (0.0-0.2); BASO % 0.5 % (0.0-2.0); EOS % 0.2 % (0.0-4.0); HEMOGLOBIN 13.8 g/dL (12.0-18.0); LYMPH # 3.9 K/uL (1.0-4.3); LYMPH % 34.8 % (20.0-40.0); MEAN CELL VOLUME 83.9 fL (80.0-94.0); MEAN CORPUSCULAR HEMOGLOBIN 28.8 pg (27.0-31.0); MEAN CORPUSCULAR HGB CONC 34.3 g/dL (33.0-37.0); MEAN PLATELET VOLUME 9.9 fL (7.2-11.7); MONO # 0.8 K/uL (0.0-0.8); MONO % 7.6 % (0.0-10.0); NEUT # 6.3 K/uL (1.8-7.0); NEUT % 56.9 % (50.0-75.0); RBC 4.8 Mil/uL (4.40-5.90); WHITE BLOOD COUNT 11.1 K/uL (4.8-10.8)
[2018-05-10 06:35] LABS: ALB/GLOB RATIO 1.1 (1.0-2.1)
[2018-05-10] MEDS ORDERED: Dextrose 50% SYRINGE Inj (50 ml) IV PRN (11:35)
[2018-05-10] MEDS ORDERED: Glucagon Recombinant 1 mg Inj IM PRN (11:35)
--- NOTE | 2018-05-10 11:38 | CP.PCM.PN ---
Subjective - Date & Time of Evaluation Date of Evaluation: 05/10/18 Time of Evaluation: 11:37 - Subjective Subjective: Internal Medicine Progress Note- Dr Curry Service Patient seen and examined at bedside. Per nursing no acute events overnight. Patient is complaining about heart burn, wants to go home. Offers no complaints at this time. Denies headaches, dizziness, cp, palpitations, sob, abdominal pain , nausea/vomiting. Objective - Vital Signs/Intake and Output Vital Signs (last 24 hours): Temp Pulse Resp BP Pulse Ox 98.6 F 84 17 136/83 99 05/10/18 04:00 05/10/18 02:03 05/10/18 02:03 05/10/18 02:03 05/09/18 23:00 Intake and Output: 05/10/18 05/10/18 06:59 18:59 Intake Total 1740 Output Total 1200 200 Balance 540 -200 - Medications Medications: Current Medications Al Hydrox/Mg Hydrox/Simethicone (Maalox Plus 30 Ml) 30 ml PO DAILY [facility] Insulin Glargine (Lantus) 5 unit SC HS [facility] Insulin Human Regular (Novolin R) 0 unit SC ACHS [facility] PRN Reason: Protocol Pantoprazole Sodium (Protonix Inj) 40 mg IVP DAILY [facility] Last Admin: 05/10/18 09:07 Dose: 40 mg - Labs Labs: 05/10/18 06:13 05/10/18 06:13 - Constitutional Appears: Well, No Acute Distress - Head Exam Head Exam: ATRAUMATIC, NORMAL INSPECTION, NORMOCEPHALIC - Eye Exam Eye Exam: Normal appearance, Nystagmus Additional comments: +legally blind - ENT Exam ENT Exam: Mucous Membranes Moist - Neck Exam Neck Exam: Full ROM - Respiratory Exam Respiratory Exam: Clear to Ausculation Bilateral, NORMAL BREATHING PATTERN. absent: Rales, Rhonchi, Wheezes - Cardiovascular Exam Cardiovascular Exam: REGULAR RHYTHM, +S1, +S2 - GI/Abdominal Exam GI & Abdominal Exam: Soft, Normal Bowel Sounds. absent: Guarding, Rigid, Tenderness - Extremities Exam Extremities Exam: Normal Inspection - Neurological Exam Neurological Exam: Alert, Awake, Oriented x3 - Psychiatric Exam Psychiatric exam: Normal Affect, Normal Mood - Skin Skin Exam: Dry, Normal Color, Warm Assessment and Plan - Assessment and Plan (Free Text) Assessment: A/P: Patient is a 58 year old male with past medical history of Hypertension, Diabetes Mellitus, bilateral vision loss 2/2 glaucoma presented to the ED with severe hypoglycemia, loss of conciousness and fever. As per , patient was having persistent vomiting for a month, he had a GI work up which was negative. Severe Hypoglycemia -Stable, afebrile -CT head showed no acute intracranial hemorrhage -Blood sugars have improved -Will start Lantus 5 units HS -Moderate insulin sliding scale -Hypoglycemia protocol -Accuchecks ACHS -Last A1C 7.2 in 04/2018 -PT eval ordered Chest pain likey 2/2 GERD -Troponins negative -Echo completed, awaiting official report -Cardiology on consult, help appreciated -Per cardio, If wall motion abnormalities or recurrent chest pain will get stress test -Mylanta daily 30ml PO daily -Continue protonix 40mg IVP daily Chronic Kidney Disease -BUN/Cr 26/1.8 -Kidney function improving -Continue to monitor at this time Hypokalemia -Continue to monitor and replete as needed History of Hypertension -Currently normatensive -Continue home dose of Norvasc and Metoprolol GI/DVT ppx: Protonix 40mg IVP daily Heparin 5000 units Q12H SC Plan discussed with Dr Antoinette hCavez DO PGY-2
[2018-05-10] MEDS ORDERED: Alum-Mag Hydrox-Simethicone Susp (30 mL) PO SCH (11:45)
[2018-05-10] MEDS: (Novolin R) Insulin Human Regular 100 units/ml vial SC SCH ×2 (17:08→22:22)
--- NOTE | 2018-05-10 19:59 | CARD ---
APPROVED REPORT EKG Measurement Heart [id number] DC [id number] <Conclusion> Normal sinus rhythm Septal infarct, age undetermined T wave abnormality, consider inferolateral ischemia Abnormal ECG
[2018-05-10] MEDS ORDERED: (Lantus) Insulin Glargine, Recombinant SC SCH (22:00)
--- NOTE | 2018-05-10 23:00 | CP.PCM.PN ---
Subjective - Date & Time of Evaluation Date of Evaluation: 05/10/18 Time of Evaluation: 15:05 - Subjective Subjective: Patient seen and evaluated Comfortable Physical Exam - Head Exam Head Exam: ATRAUMATIC, NORMOCEPHALIC - ENT Exam ENT Exam: Mucous Membranes Moist - Respiratory Exam Respiratory Exam: Clear to Auscultation Bilateral - Cardiovascular Exam Cardiovascular Exam: REGULAR RHYTHM Chest Pain Given description unlikely cardiac Trops negative ECHO no WMA No further cardiac work up needed at this time Medical management Objective - Vital Signs/Intake and Output Vital Signs (last 24 hours): Temp Pulse Resp BP Pulse Ox 98.4 F 80 20 150/80 100 05/10/18 16:54 05/10/18 16:54 05/10/18 16:54 05/10/18 17:10 05/10/18 16:54 Intake and Output: 05/10/18 05/11/18 18:59 06:59 Intake Total 480 Output Total 725 Balance -245 - Medications Medications: Current Medications Al Hydrox/Mg Hydrox/Simethicone (Maalox Plus 30 Ml) 30 ml PO DAILY [facility] Last Admin: 05/10/18 12:08 Dose: 30 ml Amlodipine Besylate (Norvasc) 10 mg PO DAILY [facility] Dextrose (Dextrose 50% Inj) 0 ml IV STAT PRN; Protocol PRN Reason: Hypoglycemia Protocol Dextrose (Glutose 15) 15 gm PO ONCE PRN; Protocol PRN Reason: Hypoglycemia Protocol Glucagon (Glucagen Diagnostic Kit) 1 mg IM STAT PRN; Protocol PRN Reason: Hypoglycemia Protocol Heparin Sodium (Porcine) (Heparin) 5,000 units SC Q12 [facility] Last Admin: 05/10/18 22:23 Dose: 5,000 units Dextrose (Dextrose 5% In Water 1000 Ml) 1,000 mls @ 0 mls/hr IV .Q0M PRN; Protocol; Per Protocol PRN Reason: Hypoglycemia Protocol Insulin Glargine (Lantus) 5 unit SC HS [facility] Last Admin: 05/10/18 22:23 Dose: 5 u Insulin Human Regular (Novolin R) 0 unit SC ACHS [facility] PRN Reason: Protocol Last Admin: 05/10/18 22:22 Dose: Not Given Metoprolol Tartrate (Lopressor) 25 mg PO BID [facility] Last Admin: 05/10/18 17:10 Dose: 25 mg Pantoprazole Sodium (Protonix Inj) 40 mg IVP DAILY [facility] Last Admin: 05/10/18 09:07 Dose: 40 mg - Labs Labs: 05/10/18 06:13 05/10/18 06:13 Assessment and Plan (1) Chest pain Status: Acute
--- NOTE | 2018-05-10 23:27 | CARD ---
APPROVED REPORT EXAM: Two-dimensional and M-mode echocardiogram with Doppler and color Doppler. Other Information Quality : GoodRhythm : INDICATION Abnormal EKG/Arrhythmia Chest Pain RISK FACTORS Hypertension 2D DIMENSIONS IVSd1.1 (0.7-1.1cm)LVDd3.2 (3.9-5.9cm) PWd1.3 (0.7-1.1cm)LVDs2.0 (2.5-4.0cm) FS (%) 35.5 %LVEF (%)66.4 (>50%) M-Mode DIMENSIONS Left Atrium (MM)3.09 (2.5-4.0cm)IVSd0.94 (0.7-1.1cm) Aortic Root3.07 (2.2-3.7cm)LVDd5.22 (4.0-5.6cm) Aortic Cusp Exc.2.07 (1.5-2.0cm)PWd0.80 (0.7-1.1cm) FS (%) 40 %LVDs3.15 (2.0-3.8cm) LVEF (%)70 (>50%) Mitral Valve MV E Ocexnmbs46.8cm/sMV A Spbhggcr75.6cm/sE/A ratio0.5 TDI E/Lateral E'0.0E/Medial E'0.0 Tricuspid Valve TR Peak Liridqww918tb/sTR Peak Gr.[id number] LEFT VENTRICLE The left ventricle is normal size. There is normal left ventricular wall thickness. Left ventricle systolic function is normal. The Ejection Fraction is 65-70%. There is normal LV segmental wall motion. The left ventricular diastolic function is abnormal-Grade I-abnormal relaxation pattern. No left ventricle thrombus noted on this study. RIGHT VENTRICLE The right ventricle is normal size. The right ventricular systolic function is normal. ATRIA The left atrium size is normal. The right atrium size is normal. AORTIC VALVE The aortic valve is mildly to moderately sclerotic. The aortic valve is trileaflet. No aortic regurgitation is present. There is no aortic valvular stenosis. There is no aortic valvular vegetation. MITRAL VALVE Mitral annular calcification is mild to moderate. There is no evidence of mitral valve prolapse. There is no mitral valve stenosis. There is no mitral valve regurgitation noted. TRICUSPID VALVE The tricuspid valve is normal in structure. There is no tricuspid valve regurgitation noted. There is no tricuspid valve prolapse or vegetation. There is no tricuspid valve stenosis. PULMONIC VALVE The pulmonic valve is not well visualized. There is no pulmonic valvular regurgitation. GREAT VESSELS The aortic root is normal in size. The IVC is normal in size and collapses >50% with inspiration. PERICARDIAL EFFUSION There is no pericardial effusion. There is no pleural effusion. <Conclusion> The left ventricle is normal size. Left ventricle systolic function is normal. The Ejection Fraction is 65-70%. The left ventricular diastolic function is abnormal-Grade I-abnormal relaxation pattern. The right ventricle is normal size. The right ventricular systolic function is normal. The left atrium size is normal. The right atrium size is normal. Normal valves.
--- NOTE | 2018-05-10 23:41 | CARD ---
APPROVED REPORT EKG Measurement Heart [id number] W[place] 128P-6 [id number] <Conclusion> Normal sinus rhythm ST & T wave abnormality, consider inferior ischemia ST & T wave abnormality, consider anterolateral ischemia Prolonged QT Abnormal ECG
[2018-05-11 06:33] LABS: BASO % 0.3 % (0.0-2.0); EOS % 0.3 % (0.0-4.0); HEMOGLOBIN 14.8 g/dL (12.0-18.0); LYMPH # 4.1 K/uL (1.0-4.3); MEAN CELL VOLUME 83.5 fL (80.0-94.0); MEAN CORPUSCULAR HEMOGLOBIN 28.4 pg (27.0-31.0); MEAN PLATELET VOLUME 9.3 fL (7.2-11.7); MONO % 8.1 % (0.0-10.0); NEUT % 57.3 % (50.0-75.0); NRBC % 0.1 % (0.0-2.0); RBC 5.2 Mil/uL (4.40-5.90); RED CELL DISTRIBUTION WIDTH 13.2 % (11.5-14.5); WHITE BLOOD COUNT 12.2 K/uL (4.8-10.8)
[2018-05-11 06:36] LABS: ALB/GLOB RATIO 1.1 (1.0-2.1); ALBUMIN 3.1 g/dL (3.5-5.0); CALCIUM 8.3 mg/dl (8.6-10.4)
[2018-05-11] MEDS: (Novolin R) Insulin Human Regular 100 units/ml vial SC SCH ×2 (07:37→12:30)
[2018-05-11 07:55] VITALS: O2SAT 100
--- NOTE | 2018-05-11 07:58 | CP.PCM.PN ---
Subjective - Date & Time of Evaluation Date of Evaluation: 05/11/18 Time of Evaluation: 07:57 - Subjective Subjective: Internal Medicine Progress Note - Dr Curry Service Patient seen and examined at bedside. Per nursing no acute events overnight. Patient is doing well, states that heart burn is improving. Offers no complaints at this time. Patient desires to go home. Denies headaches, dizziness , cp, palpitations, sob, abdominal pain, N/V, urinary symptoms. Objective - Vital Signs/Intake and Output Vital Signs (last 24 hours): Temp Pulse Resp BP Pulse Ox 98.2 F 93 H 22 154/100 H 100 05/11/18 07:54 05/11/18 07:54 05/11/18 07:54 05/11/18 07:54 05/11/18 07:54 Intake and Output: 05/11/18 05/11/18 06:59 18:59 Intake Total 450 Output Total 800 Balance -350 - Medications Medications: Current Medications Al Hydrox/Mg Hydrox/Simethicone (Maalox Plus 30 Ml) 30 ml PO DAILY [facility] Last Admin: 05/10/18 12:08 Dose: 30 ml Amlodipine Besylate (Norvasc) 10 mg PO DAILY [facility] Dextrose (Dextrose 50% Inj) 0 ml IV STAT PRN; Protocol PRN Reason: Hypoglycemia Protocol Dextrose (Glutose 15) 15 gm PO ONCE PRN; Protocol PRN Reason: Hypoglycemia Protocol Glucagon (Glucagen Diagnostic Kit) 1 mg IM STAT PRN; Protocol PRN Reason: Hypoglycemia Protocol Heparin Sodium (Porcine) (Heparin) 5,000 units SC Q12 [facility] Last Admin: 05/10/18 22:23 Dose: 5,000 units Dextrose (Dextrose 5% In Water 1000 Ml) 1,000 mls @ 0 mls/hr IV .Q0M PRN; Protocol; Per Protocol PRN Reason: Hypoglycemia Protocol Insulin Glargine (Lantus) 5 unit SC HS [facility] Last Admin: 05/10/18 22:23 Dose: 5 u Insulin Human Regular (Novolin R) 0 unit SC ACHS [facility] PRN Reason: Protocol Last Admin: 05/11/18 07:37 Dose: 2 u Metoprolol Tartrate (Lopressor) 25 mg PO BID [facility] Last Admin: 05/11/18 07:49 Dose: 25 mg Pantoprazole Sodium (Protonix Inj) 40 mg IVP DAILY [facility] Last Admin: 05/10/18 09:07 Dose: 40 mg - Labs Labs: 05/11/18 06:14 05/11/18 06:14 - Additional Findings Additional findings: - Constitutional Appears: Well, No Acute Distress - Head Exam Head Exam: ATRAUMATIC, NORMAL INSPECTION, NORMOCEPHALIC - Eye Exam Eye Exam: Normal appearance, Nystagmus Additional comments: +legally blind - ENT Exam ENT Exam: Mucous Membranes Moist - Neck Exam Neck Exam: Full ROM - Respiratory Exam Respiratory Exam: Clear to Ausculation Bilateral, NORMAL BREATHING PATTERN. absent: Rales, Rhonchi, Wheezes - Cardiovascular Exam Cardiovascular Exam: REGULAR RHYTHM, +S1, +S2 - GI/Abdominal Exam GI & Abdominal Exam: Soft, Normal Bowel Sounds. absent: Guarding, Rigid, Tenderness - Extremities Exam Extremities Exam: Normal Inspection - Neurological Exam Neurological Exam: Alert, Awake, Oriented x3 - Psychiatric Exam Psychiatric exam: Normal Affect, Normal Mood - Skin Skin Exam: Dry, Normal Color, Warm Assessment and Plan - Assessment and Plan (Free Text) Assessment: A/P: Patient is a 58 year old male with past medical history of Hypertension, Diabetes Mellitus, bilateral vision loss 2/2 glaucoma presented to the ED with severe hypoglycemia, loss of conciousness and fever. As per , patient was having persistent vomiting for a month, he had a GI work up which was negative. Severe Hypoglycemia -Stable, afebrile -CT head showed no acute intracranial hemorrhage -Blood sugars have improved -Will increase Lantus 8 units HS -Moderate insulin sliding scale -Hypoglycemia protocol -Accuchecks ACHS -Last A1C 7.2 in 04/2018 -PT eval ordered Chest pain likely 2/2 GERD -Troponins negative -Echo showed EF 65-70%, abnormal left ventricular diastolic dysfunction -Cardiology on consult, help appreciated -Per cardio, If wall motion abnormalities or recurrent chest pain will get stress test -Mylanta daily 30ml PO daily -Continue protonix 40mg IVP daily Chronic Kidney Disease -Kidney function improving -Continue to monitor at this time Hypokalemia -Continue to monitor and replete as needed History of Hypertension -Currently normatensive -Continue home dose of Norvasc and Metoprolol GI/DVT ppx: Protonix 40mg IVP daily Heparin 5000 units Q12H [facility] DISPO: Will discharge the patient home today. Patient to continue Lantus 8 units HS and Sliding scale at home. Will also prescribe Protonix 40mg PO daily for heart burn. Advised the patient to have his take pictures of his medications and bring it to his follow up appointment in the office. Plan discussed with Dr Antoinette Chavez DO PGY-2
[2018-05-11 12:50] VITALS: BP 143/83; PULSE 77; RESP 20; TEMP 98.3
--- NOTE | 2018-05-11 20:16 | CP.PCM.PN ---
Subjective - Date & Time of Evaluation Date of Evaluation: 05/11/18 Time of Evaluation: 09:15 - Subjective Subjective: Patient seen and evaluated Comfortable Physical Exam - Head Exam Head Exam: ATRAUMATIC, NORMOCEPHALIC - ENT Exam ENT Exam: Mucous Membranes Moist - Respiratory Exam Respiratory Exam: Clear to Auscultation Bilateral - Cardiovascular Exam Cardiovascular Exam: REGULAR RHYTHM Chest Pain Given description unlikely cardiac Trops negative ECHO no WMA No further cardiac work up needed at this time Medical management Objective - Vital Signs/Intake and Output Vital Signs (last 24 hours): Temp Pulse Resp BP Pulse Ox 98.3 F 77 20 143/83 100 05/11/18 12:00 05/11/18 12:00 05/11/18 12:00 05/11/18 12:00 05/11/18 12:00 Intake and Output: 05/11/18 05/12/18 18:59 06:59 Intake Total 240 Output Total 400 Balance -160 - Labs Labs: 05/11/18 06:14 05/11/18 06:14 Assessment and Plan (1) Chest pain Status: Acute
== END 2018-05-11 15:15 | disposition home or self-care (01) | DRG 639 ==
LOC: C.ER 23:48 → C.9E 05-08 06:50 → C.6T 05-08 07:52 → C.9E 05-08 08:10 → C.9I 05-08 08:15
PROVIDERS: ADMIT Internal Medicine Pulmonary Disease; ATTEND Internal Medicine Pulmonary Disease
DX: E11.649 Type 2 diabetes mellitus with hypoglycemia without coma (principal); E87.6 Hypokalemia; E11.22 Type 2 diabetes mellitus with diabetic chronic kidney disease; H40.9 Unspecified glaucoma; H54.3 Unqualified visual loss, both eyes; I12.9 Hypertensive chronic kidney disease with stage 1 through stage 4 chronic kidney disease, or unspecified chronic kidney disease; K21.9 Gastro-esophageal reflux disease without esophagitis; N18.9 Chronic kidney disease, unspecified; Z79.4 Long term (current) use of insulin; F17.210 Nicotine dependence, cigarettes, uncomplicated; R56.9 Unspecified convulsions